=== PATIENT | female | born 1955 | race American Indian/Alaskan Native ===

== ENCOUNTER 2018-05-10 10:08 | Emergency (ER) | payer MEDICARE ==
[2018-05-10 10:27] VITALS: BP 154/82
[2018-05-10] MEDS ORDERED: NACL 0.9% 1000 ML 1,000 ML IV ONE (11:17)
[2018-05-10] MEDS ORDERED: ZOFRAN IV ONE (11:17)
[2018-05-10 11:56] LABS: Basophils # (Auto) 0.1 K/mm3 (0.0-0.1); Basophils % (Auto) 0.6 % (0.0-1.8); Eosinophils # (Auto) 0.2 K/mm3 (0.0-0.4); Eosinophils % (Auto) 1.2 % (0.0-4.3); Hematocrit 35.6 % (30.3-42.9); Hemoglobin 11.4 gm/dl (10.1-14.3); Lymphocytes # (Auto) 1.8 K/mm3 (1.2-5.4); Lymphocytes % (Auto) 12.9 % (13.4-35.0); Mean Corpuscular HGB Conc 32 % (30-34); Mean Corpuscular Volume 89 fl (79-97); Monocytes # (Auto) 0.9 K/mm3 (0.0-0.8); Monocytes % (Auto) 6.6 % (0.0-7.3); Platelet Count 386 K/mm3 (140-440); Red Blood Count 4.02 M/mm3 (3.65-5.03); Red Cell Distribution Width 15.2 % (13.2-15.2)
--- NOTE | 2018-05-10 12:10 | Emergency Department Report ---
ED N/V/D HPI - General Chief complaint: Nausea/Vomiting/Diarrhea Stated complaint: NAUSEA Time Seen by Provider: 05/10/18 11:16 Source: patient Mode of arrival: Wheelchair Limitations: No Limitations - History of Present Illness Initial comments: This is a 63-year-old female nontoxic, well nourished in appearance, no acute signs of distress presents to the ED with c/o of intermittent nausea x1 month. Patient stated that she has been changed with her diabetes medications and NovoLog and ever since then has had nausea. Patient did state that she had one episode of vomiting last night. Patient currently denies any vomiting. Patient describes vomiting as food content. Patient also is complaining about dry nonproductive cough. Patient denies any abdominal pain, chest pain, short of breath, fever, chills, headache, stiff neck, numbness or tingling. Patient denies any diarrhea or constipation. Patient denies any recent travels. MD complaint: nausea, other (cough) -: month(s) (1) Associated Abdominal Pain: No Radiation: none Pain Scale: 0 Consistency: intermittent Improves with: none Worsens with: none Associated Symptoms: cough, nausea/vomiting. denies: myalgias, chest pain, diaphoresis, fever/chills, headaches, loss of appetite, malaise, rash, dysuria, shortness of breath, syncope, weakness - Related Data Home Medications Medication Instructions Recorded Confirmed Last Taken Amlodipine Besylate [Norvasc] 10 mg PO QDAY 05/10/18 05/10/18 Unknown Atorvastatin [Lipitor Tab] 80 mg PO QHS 05/10/18 05/10/18 Unknown Chlorthalidone [Thalitone] 25 mg PO QDAY 05/10/18 05/10/18 Unknown Insulin Aspart [NovoLOG Flexpen] 16 units SUB-Q TID 05/10/18 05/10/18 Unknown Lisinopril [Zestril] 40 mg PO DAILY 05/10/18 05/10/18 Unknown Metformin HCl [Glucophage] 500 mg PO BID 05/10/18 05/10/18 Unknown Ranitidine HCl [Zantac 150 MG TAB] 150 mg PO BID 05/10/18 05/10/18 Unknown Previous Rx's Medication Instructions Recorded Last Taken Type Benzonatate [Tessalon Perle] 100 mg PO Q8H PRN #20 capsule 05/10/18 Unknown Rx Docusate Sodium [Colace] 100 mg PO BID PRN #10 capsule 05/10/18 Unknown Rx Ondansetron [Zofran Odt] 4 mg PO Q8HR PRN #20 tab.rapdis 05/10/18 Unknown Rx Allergies Allergy/AdvReac Type Severity Reaction Status Date / Time No Known Allergies Allergy Unverified 05/10/18 13:39 ED Review of Systems ROS: Stated complaint: NAUSEA Other details as noted in HPI Constitutional: denies: chills, fever Eyes: denies: eye pain, eye discharge, vision change ENT: denies: ear pain, throat pain Respiratory: cough. denies: shortness of breath, wheezing Cardiovascular: denies: chest pain, palpitations Endocrine: no symptoms reported Gastrointestinal: nausea. denies: abdominal pain, vomiting, diarrhea Genitourinary: denies: urgency, dysuria, discharge Musculoskeletal: denies: back pain, joint swelling, arthralgia Skin: denies: rash, lesions Neurological: denies: headache, weakness, paresthesias Psychiatric: denies: anxiety, depression Hematological/Lymphatic: denies: easy bleeding, easy bruising ED Past Medical Hx - Past Medical History Previous Medical History?: Yes Hx Hypertension: Yes Hx Diabetes: Yes Hx Arthritis: Yes - Surgical History Past Surgical History?: No - Social History Smoking Status: Never Smoker Substance Use Type: None - Medications Home Medications: Home Medications Medication Instructions Recorded Confirmed Last Taken Type Amlodipine Besylate [Norvasc] 10 mg PO QDAY 05/10/18 05/10/18 Unknown History Atorvastatin [Lipitor Tab] 80 mg PO QHS 05/10/18 05/10/18 Unknown History Benzonatate [Tessalon Perle] 100 mg PO Q8H PRN #20 capsule 05/10/18 Unknown Rx Chlorthalidone [Thalitone] 25 mg PO QDAY 05/10/18 05/10/18 Unknown History Docusate Sodium [Colace] 100 mg PO BID PRN #10 capsule 05/10/18 Unknown Rx Insulin Aspart [NovoLOG Flexpen] 16 units SUB-Q TID 05/10/18 05/10/18 Unknown History Lisinopril [Zestril] 40 mg PO DAILY 05/10/18 05/10/18 Unknown History Metformin HCl [Glucophage] 500 mg PO BID 05/10/18 05/10/18 Unknown History Ondansetron [Zofran Odt] 4 mg PO Q8HR PRN #20 tab.rapdis 05/10/18 Unknown Rx Ranitidine HCl [Zantac 150 MG TAB] 150 mg PO BID 05/10/18 05/10/18 Unknown History ED Physical Exam - General Limitations: No Limitations General appearance: alert, in no apparent distress - Head Head exam: Present: atraumatic, normocephalic - Eye Eye exam: Present: normal appearance - Neck Neck exam: Present: normal inspection, full ROM. Absent: tenderness, meningismus - Respiratory Respiratory exam: Present: normal lung sounds bilaterally. Absent: respiratory distress, wheezes, rales, rhonchi, stridor, chest wall tenderness, accessory muscle use, decreased breath sounds, prolonged expiratory - Cardiovascular Cardiovascular Exam: Present: regular rate, normal rhythm, normal heart sounds. Absent: bradycardia, tachycardia, irregular rhythm, systolic murmur, diastolic murmur, rubs, gallop - GI/Abdominal GI/Abdominal exam: Present: soft, normal bowel sounds. Absent: distended, tenderness, guarding, rebound, rigid, diminished bowel sounds, hyperactive bowel sounds, hypoactive bowel sounds - Extremities Exam Extremities exam: Present: normal inspection, full ROM - Back Exam Back exam: Present: normal inspection, full ROM - Neurological Exam Neurological exam: Present: alert, oriented X3 - Psychiatric Psychiatric exam: Present: normal affect, normal mood - Skin Skin exam: Present: warm, dry, intact, normal color. Absent: rash ED Course Vital Signs 05/10/18 05/10/18 10:23 11:12 Temperature 98.1 F Pulse Rate 86 Respiratory 16 18 Rate Blood Pressure 154/82 O2 Sat by Pulse 99 Oximetry - Reevaluation(s) Reevaluation #1: 05/10/18 12:59 Patient is speaking in full sentences with no signs of distress noted. ED Medical Decision Making - Lab Data Result diagrams: 05/10/18 11:27 05/10/18 11:27 - Medical Decision Making This is a 63-year-old female that presents with nausea and cough. Patient is stable and was examined by me. There is no abdominal tenderness. Negative signs of symptoms of appendicitis. Labs obtained. UA obtained. Chest/abdomen xray obtained and dictated by the radiologist. Patient is notified of the report with no questions noted by the patient. Vital signs are stable prior to discharge. Patient received Zofran and 1L Normal saline in the ED which patient stated symptoms has resolved and subsided. A by mouth challenge has been obtained and patient tolerated well with no nausea vomiting. Patient was notified of strict precautions of appendicitis symptoms and to return to the ED if symptoms occurs as soon as possible. Patient was also instructed to Follow-up with a primary care doctor in 3-5 days or if symptoms worsen and continue return to emergency room as soon as possible. At time of discharge, the patient does not seem toxic or ill in appearance. No acute signs of distress noted. Patient agrees to discharge treatment plan of care. No further questions noted by the patient. Critical care attestation.: If time is entered above; I have spent that time in minutes in the direct care of this critically ill patient, excluding procedure time. ED Disposition Clinical Impression: Nausea, Cough Constipation Qualifiers: Constipation type: unspecified constipation type Qualified Code(s): K59.00 - Constipation, unspecified Disposition: TO HOME OR SELFCARE Is pt being admited?: No Does the pt Need Aspirin: No Condition: Stable Instructions: High Fiber Diet (ED), Constipation (ED), Acute Nausea and Vomiting (ED) Additional Instructions: Follow-up with a primary care doctor in 3-5 days or if symptoms worsen and continue return to emergency room as soon as possible. Prescriptions: Benzonatate [Tessalon Perle] 100 mg PO Q8H PRN #20 capsule PRN Reason: Cough Docusate Sodium [Colace] 100 mg PO BID PRN #10 capsule PRN Reason: Constipation Ondansetron [Zofran Odt] 4 mg PO Q8HR PRN #20 tab.rapdis PRN Reason: Nausea Referrals: PRIMARY CARE, [Referring] - 3-5 Days VÍCTOR SMITH MD [Staff Physician] - 3-5 Days [facility] [Outside] - 3-5 Days [facility] [Outside] - 3-5 Days Forms: Work/School Release Form(ED)
[2018-05-10 12:15] LABS: Alanine Aminotransferase 15 units/L (7-56); Albumin 3.9 g/dL (3.9-5); BUN/Creatinine Ratio 29; Bilirubin,Direct < 0.2 mg/dL (0-0.2); Blood Urea Nitrogen 20 mg/dL (7-17); Calcium 9.2 mg/dL (8.4-10.2); Hemolysis Index 14
[2018-05-10] MEDS ORDERED: TESSALON PERLES PO ONE (12:39)
--- NOTE | 2018-05-10 13:44 | XRay Report ---
ABDOMINAL SERIES: History: Cough. Supine and upright views of the abdomen and frontal view of the chest are submitted. There is gas mixed with moderate stool throughout the colon. There are no dilated loops of bowel or air-fluid levels. There is no free intraperitoneal gas. The lungs are clear. IMPRESSION: Constipation.
== END 2018-05-10 14:53 | disposition home or self-care (01) ==
LOC: ED 10:08
DX: R11.2 Nausea with vomiting, unspecified (principal); K59.00 Constipation, unspecified; E11.65 Type 2 diabetes mellitus with hyperglycemia; R05 Cough; I10 Essential (primary) hypertension; M19.90 Unspecified osteoarthritis, unspecified site
CPT/HCPCS: 36415; 74022; 80048; 80076; 82805; 82962; 83690; 85025; 96361; 96374; 99284; J2405; J7030

== ENCOUNTER 2020-05-15 12:32 | Inpatient (IN) | payer OTHER, MEDICARE ==
--- NOTE | 2020-05-15 12:47 | Event Note ---
ED Screening Note Date of service: 05/15/20 Time: 12:45 ED Screening Note: Pt complains of nausea x 3 days satting at 90-92% on room air-admits to mild SOB denies CP No vomiting, cough, diarrhea, or abdominal pain per pt denies hx of CHF, +asthma, unsure of hx of COPD This initial assessment/diagnostic orders/clinical plan/treatment(s) is/are subject to change based on patients health status, clinical progression and re- assessment by fellow clinical providers in the ED. Further treatment and workup at subsequent clinical providers discretion. Patient/guardian urged not to elope from the ED as their condition may be serious if not clinically assessed and managed. Initial orders include: labs CXR EKG
--- NOTE | 2020-05-15 13:25 | XRay Report ---
CHEST 2 VIEWS INDICATION / CLINICAL INFORMATION: Hypoxia. COMPARISON: None available. FINDINGS: SUPPORT DEVICES: None. HEART / MEDIASTINUM: No significant abnormality. LUNGS / PLEURA: There are diffuse patchy bilateral pulmonary opacities. No pneumothorax. ADDITIONAL FINDINGS: No significant additional findings. IMPRESSION: 1. Diffuse patchy bilateral pulmonary opacities that could indicate viral pneumonia. Signer Name: Charles Chavez MD Signed: 05/15/2020 1:21 PM Workstation Name: [id number]
[2020-05-15 14:27] LABS: Basophils % (Auto) 0.3 % (0.0-1.8); Hematocrit 29.7 % (30.3-42.9); Hemoglobin 9.3 gm/dl (10.1-14.3); Lymphocytes # (Auto) 0.7 K/mm3 (1.2-5.4); Lymphocytes % (Auto) 9.9 % (13.4-35.0); Mean Corpuscular HGB Conc 31 % (30-34); Mean Corpuscular Volume 78 fl (79-97); Monocytes # (Auto) 0.6 K/mm3 (0.0-0.8); Monocytes % (Auto) 9.2 % (0.0-7.3); Platelet Count 222 K/mm3 (140-440); Red Blood Count 3.81 M/mm3 (3.65-5.03); Red Cell Distribution Width 19.2 % (13.2-15.2)
[2020-05-15 14:45] LABS: C-Reactive Protein 10.5 mg/dL (0.00-1.30)
[2020-05-15 14:54] LABS: Alanine Aminotransferase 18 units/L (7-56); Albumin 3.5 g/dL (3.9-5); BUN/Creatinine Ratio 21; Blood Urea Nitrogen 23 mg/dL (7-17); Calcium 8.3 mg/dL (8.4-10.2); Hemolysis Index 2
[2020-05-15] MEDS ORDERED: AZITHROMYCIN/NS 500 MG/250 ML 500 MG/250 ML BAG IV ONE (16:32)
[2020-05-15] MEDS ORDERED: cefTRIAXone/NS 2 GM/100 ML 2 GM/100 ML BAG IV ONE (16:32)
[2020-05-15] MEDS ORDERED: dexAMETHasone 4 MG/ML VIAL IV ONE (16:34)
[2020-05-15] MEDS ORDERED: SODIUM CHLORIDE 0.9% 1000 ML 1,000 ML IV ONE (16:34)
--- NOTE | 2020-05-15 16:46 | Emergency Department Report ---
ED General Adult HPI - General Chief complaint: Nausea/Vomiting/Diarrhea Stated complaint: NAUSEA Time Seen by Provider: 05/15/20 12:44 Source: EMS Mode of arrival: Wheelchair Limitations: No Limitations - History of Present Illness Initial comments: Patient is a 65-year-old F [place] female with a past medical history of diabetes COPD hypertension who is presenting with generalized malaise and not feeling well for approximately a week. Patient has had some mild nausea as well as a cough that is nonproductive. Just minimal shortness of breath. Patient states she feels like her sugar has been getting high at home. States when her blood glucose rises she just feels miserable. Patient have a hard time expressing exactly how she feels specifically. She denies diarrhea or vomiting. States she has minimal body aches. To her knowledge she has no exposure to COVID-19. Severity scale (0 -10): 0 - Related Data Home Medications Medication Instructions Recorded Confirmed Last Taken Amlodipine Besylate [Norvasc] 10 mg PO QDAY 05/10/18 05/10/18 Unknown Atorvastatin [Lipitor Tab] 80 mg PO QHS 05/10/18 05/10/18 Unknown Chlorthalidone [Thalitone] 25 mg PO QDAY 05/10/18 05/10/18 Unknown Insulin Aspart (Nf) [NovoLOG 16 units SUB-Q TID 05/10/18 05/10/18 Unknown Flexpen] Lisinopril [Zestril] 40 mg PO DAILY 05/10/18 05/10/18 Unknown Metformin HCl [Glucophage] 500 mg PO BID 05/10/18 05/10/18 Unknown raNITIdine HCl [Zantac 150 MG TAB] 150 mg PO BID 05/10/18 05/10/18 Unknown Previous Rx's Medication Instructions Recorded Last Taken Type Benzonatate [Tessalon Perle] 100 mg PO Q8H PRN #20 capsule 05/10/18 Unknown Rx Docusate Sodium [Colace] 100 mg PO BID PRN #10 capsule 05/10/18 Unknown Rx Ondansetron [Zofran Odt] 4 mg PO Q8HR PRN #20 tab.rapdis 05/10/18 Unknown Rx Allergies Allergy/AdvReac Type Severity Reaction Status Date / Time No Known Allergies Allergy Verified 05/15/20 12:41 ED Review of Systems ROS: Stated complaint: NAUSEA Other details as noted in HPI Comment: All other systems reviewed and negative ED Past Medical Hx - Past Medical History Hx Hypertension: Yes Hx Diabetes: Yes Hx Arthritis: Yes - Social History Smoking Status: Never Smoker Substance Use Type: None - Medications Home Medications: Home Medications Medication Instructions Recorded Confirmed Last Taken Type Amlodipine Besylate [Norvasc] 10 mg PO QDAY 05/10/18 05/10/18 Unknown History Atorvastatin [Lipitor Tab] 80 mg PO QHS 05/10/18 05/10/18 Unknown History Benzonatate [Tessalon Perle] 100 mg PO Q8H PRN #20 capsule 05/10/18 Unknown Rx Chlorthalidone [Thalitone] 25 mg PO QDAY 05/10/18 05/10/18 Unknown History Docusate Sodium [Colace] 100 mg PO BID PRN #10 capsule 05/10/18 Unknown Rx Insulin Aspart (Nf) [NovoLOG 16 units SUB-Q TID 05/10/18 05/10/18 Unknown History Flexpen] Lisinopril [Zestril] 40 mg PO DAILY 05/10/18 05/10/18 Unknown History Metformin HCl [Glucophage] 500 mg PO BID 05/10/18 05/10/18 Unknown History Ondansetron [Zofran Odt] 4 mg PO Q8HR PRN #20 tab.rapdis 05/10/18 Unknown Rx raNITIdine HCl [Zantac 150 MG TAB] 150 mg PO BID 05/10/18 05/10/18 Unknown History ED Physical Exam - General Limitations: No Limitations General appearance: alert, in no apparent distress - Head Head exam: Present: atraumatic, normocephalic - Eye Eye exam: Present: normal appearance, PERRL, EOMI - ENT ENT exam: Present: mucous membranes moist - Neck Neck exam: Present: normal inspection - Respiratory Respiratory exam: Present: rhonchi. Absent: normal lung sounds bilaterally, re spiratory distress, wheezes, rales, chest wall tenderness, accessory muscle use - Cardiovascular Cardiovascular Exam: Present: regular rate, normal rhythm, normal heart sounds. Absent: systolic murmur, diastolic murmur, rubs, gallop - GI/Abdominal GI/Abdominal exam: Present: soft, normal bowel sounds. Absent: distended, tenderness, guarding, rebound - Extremities Exam Extremities exam: Present: normal inspection - Back Exam Back exam: Present: normal inspection - Neurological Exam Neurological exam: Present: alert, oriented X3 - Psychiatric Psychiatric exam: Present: normal affect, normal mood - Skin Skin exam: Present: warm, dry, intact, normal color. Absent: rash ED Course Vital Signs 05/15/20 12:45 Temperature 97.9 F Pulse Rate 89 Respiratory 22 Rate Blood Pressure 161/68 [Right] O2 Sat by Pulse 92 Oximetry ED Medical Decision Making - Lab Data Result diagrams: 05/15/20 14:08 05/15/20 14:08 Lab Results 05/15/20 05/15/20 05/15/20 Range/Units 14:08 14:08 14:08 WBC 6.9 (4.5-11.0) K/mm3 RBC 3.81 (3.65-5.03) M/mm3 Hgb 9.3 L (10.1-14.3) gm/dl Hct 29.7 L (30.3-42.9) % MCV 78 L (79-97) fl MCH 24 L (28-32) pg MCHC 31 (30-34) % RDW 19.2 H (13.2-15.2) % Plt Count 222 (140-440) K/mm3 Lymph % (Auto) 9.9 L (13.4-35.0) % Island % (Auto) 9.2 H (0.0-7.3) % Eos % (Auto) 0.0 (0.0-4.3) % Baso % (Auto) 0.3 (0.0-1.8) % Lymph # (Auto) 0.7 L (1.2-5.4) K/mm3 Island # (Auto) 0.6 (0.0-0.8) K/mm3 Eos # (Auto) 0.0 (0.0-0.4) K/mm3 Baso # (Auto) 0.0 (0.0-0.1) K/mm3 Seg Neutrophils % 80.6 H (40.0-70.0) % Seg Neutrophils # 5.6 (1.8-7.7) K/mm3 D-Dimer 270.88 H (0-234) ng/mlDDU Sodium 133 L (137-145) mmol/L Potassium 4.0 (3.6-5.0) mmol/L Chloride 98.9 (98-107) mmol/L Carbon Dioxide 26 (22-30) mmol/L Anion Gap 12 mmol/L BUN 23 H (7-17) mg/dL Creatinine 1.1 (0.6-1.2) mg/dL Estimated GFR > 60 ml/min BUN/Creatinine Ratio 21 % Glucose 225 H (65-100) mg/dL Lactic Acid (0.7-2.0) mmol/L Calcium 8.3 L (8.4-10.2) mg/dL Ferritin (10.0-200.0) ng/mL Total Bilirubin 0.30 (0.1-1.2) mg/dL AST 22 (5-40) units/L ALT 18 (7-56) units/L Alkaline Phosphatase 88 (35-129) units/L Lactate Dehydrogenase (91-180) units/L Troponin T 0.027 (0.00-0.029) ng/mL C-Reactive Protein (0.00-1.30) mg/dL NT-Pro-B Natriuret Pep 410.2 (0-900) pg/mL Total Protein 6.4 (6.3-8.2) g/dL Albumin 3.5 L (3.9-5) g/dL Albumin/Globulin Ratio 1.2 % Lipase 31 (13-60) units/L 05/15/20 05/15/20 05/15/20 Range/Units 14:08 14:08 15:38 WBC (4.5-11.0) K/mm3 RBC (3.65-5.03) M/mm3 Hgb (10.1-14.3) gm/dl Hct (30.3-42.9) % MCV (79-97) fl MCH (28-32) pg MCHC (30-34) % RDW (13.2-15.2) % Plt Count (140-440) K/mm3 Lymph % (Auto) (13.4-35.0) % Island % (Auto) (0.0-7.3) % Eos % (Auto) (0.0-4.3) % Baso % (Auto) (0.0-1.8) % Lymph # (Auto) (1.2-5.4) K/mm3 Island # (Auto) (0.0-0.8) K/mm3 Eos # (Auto) (0.0-0.4) K/mm3 Baso # (Auto) (0.0-0.1) K/mm3 Seg Neutrophils % (40.0-70.0) % Seg Neutrophils # (1.8-7.7) K/mm3 D-Dimer (0-234) ng/mlDDU Sodium (137-145) mmol/L Potassium (3.6-5.0) mmol/L Chloride (98-107) mmol/L Carbon Dioxide (22-30) mmol/L Anion Gap mmol/L BUN (7-17) mg/dL Creatinine (0.6-1.2) mg/dL Estimated GFR ml/min BUN/Creatinine Ratio % Glucose (65-100) mg/dL Lactic Acid 1.10 (0.7-2.0) mmol/L Calcium (8.4-10.2) mg/dL Ferritin 43.7 (10.0-200.0) ng/mL Total Bilirubin (0.1-1.2) mg/dL AST (5-40) units/L ALT (7-56) units/L Alkaline Phosphatase (35-129) units/L Lactate Dehydrogenase 296 H (91-180) units/L Troponin T (0.00-0.029) ng/mL C-Reactive Protein 10.50 H (0.00-1.30) mg/dL NT-Pro-B Natriuret Pep (0-900) pg/mL Total Protein (6.3-8.2) g/dL Albumin (3.9-5) g/dL Albumin/Globulin Ratio % Lipase (13-60) units/L - EKG Data -: EKG Interpreted by Nc - EKG Data 05/15/20 16:43 EKG shows sinus rhythm with a rate of 86. The axis is normal intervals are normal. Occasional PVC. No ST segment elevation or depressions. Is an erratic baseline secondary to the patient's breathing. Time of interpretation is 1640 - Radiology Data [facility] [address] [place] [address] XRay Report Signed Patient: DENIZ CHRISTIAN MR#: [id number] : 1955 Acct:[id number] Age/Sex: 65 / F ADM Date: 05/15/20 Loc: ED Attending Dr: Ordering Physician: LUCIA MCLAUGHLIN Date of Service: 05/15/20 Procedure(s): XR chest routine 2V Accession Number(s): [id number] cc: LUCIA MCLAUGHLIN Fluoro Time In Minutes: CHEST 2 VIEWS INDICATION / CLINICAL INFORMATION: Hypoxia. COMPARISON: None available. FINDINGS: SUPPORT DEVICES: None. HEART / MEDIASTINUM: No significant abnormality. LUNGS / PLEURA: There are diffuse patchy bilateral pulmonary opacities. No pneumothorax. ADDITIONAL FINDINGS: No significant additional findings. IMPRESSION: 1. Diffuse patchy bilateral pulmonary opacities that could indicate viral pneumonia. Signer Name: Charles Chavez MD Signed: 05/15/2020 1:21 PM Workstation Name: [id number] - Medical Decision Making Patient is a 65-year-old F [place] female who is presenting with cough and general malaise for approximately a week. Chest x-ray is consistent with bilateral lower lobe infiltrate left greater than right. There is some worry of COVID-19. Covid test has been ordered. Laboratory studies also show elevation of inflammatory markers also consistent with infection with COVID-19. Patient's O2 sat was 20 9092% on room air and she was placed on 2 L of oxygen. Patient was started on Rocephin azithromycin and given a dose of Decadron and she will be admitted to the hospitalist service. Critical Care Time: Yes (30) Critical care attestation.: If time is entered above; I have spent that time in minutes in the direct care of this critically ill patient, excluding procedure time. ED Disposition Clinical Impression: Suspected COVID-19 virus infection, Hyperglycemia, Hypoxia Pneumonia Qualifiers: Pneumonia type: due to unspecified organism Laterality: bilateral Lung location: lower lobe of lung Qualified Code(s): J18.9 - Pneumonia, unspecified organism Disposition: OP ADMIT IP TO THIS HOSP Is pt being admited?: Yes Does the pt Need Aspirin: No Condition: Poor Instructions: Bacterial Pneumonia (ED) Referrals: PRIMARY CARE, [Primary Care Provider] - 3-5 Days Time of Disposition: 16:47
[2020-05-15] MEDS ORDERED: ACETAMINOPHEN 325 MG TAB PO PRN (18:11)
[2020-05-15] MEDS ORDERED: DEXTROSE 50% IN WATER (25GM) 50 ML SYRINGE IV PRN (18:11)
[2020-05-15] MEDS ORDERED: ONDANSETRON 4 MG/2 ML INJ IV PRN (18:11)
[2020-05-15] MEDS ORDERED: MAGNESIUM HYDROXIDE (MOM) ORAL LIQD UDC PO PRN (18:11)
[2020-05-15] MEDS ORDERED: MORPHINE 2 MG/1 ML INJ IV PRN (18:11)
--- NOTE | 2020-05-15 18:25 | History and Physical Report ---
History of Present Illness Date of examination: 05/15/20 Date of admission: 05/15/20 16:47 Chief complaint: cough Malaise History of present illness: 65-year-old -[place] female with known history of arthritis, hypertension and diabetes mellitus presenting to the emergency room today complaining of generalized malaise and cough over the past 1 week. He has had some mild nausea but no vomiting. He has also had cough which is nonproductive. She has had some mild shortness of breath. Patient denies any abdominal pain, no hematuria or dysuria, no headache or dizziness. Denies any sick contacts and no recent travel. Denies any contact with anyone with COVID-19. On arrival in the emergency room patient was slightly hypoxic. Work-up in the emergency room reveals bilateral lower lobe infiltrates. Patient has been admitted for pneumonia and we will also rule out for COVID-19. Past History Past Medical History: arthritis, diabetes, hypertension, hyperlipidemia Past Surgical History: No surgical history Social history: no significant social history, alcohol abuse (Occasional Alcohol) Medications and Allergies Allergies Allergy/AdvReac Type Severity Reaction Status Date / Time No Known Allergies Allergy Verified 05/15/20 12:41 Home Medications Medication Instructions Recorded Confirmed Last Taken Type Amlodipine Besylate [Norvasc] 10 mg PO QDAY 05/10/18 05/10/18 Unknown History Atorvastatin [Lipitor Tab] 80 mg PO QHS 05/10/18 05/10/18 Unknown History Benzonatate [Tessalon Perle] 100 mg PO Q8H PRN #20 capsule 05/10/18 Unknown Rx Chlorthalidone [Thalitone] 25 mg PO QDAY 05/10/18 05/10/18 Unknown History Docusate Sodium [Colace] 100 mg PO BID PRN #10 capsule 05/10/18 Unknown Rx Insulin Aspart (Nf) [NovoLOG 16 units SUB-Q TID 05/10/18 05/10/18 Unknown History Flexpen] Lisinopril [Zestril] 40 mg PO DAILY 05/10/18 05/10/18 Unknown History Metformin HCl [Glucophage] 500 mg PO BID 05/10/18 05/10/18 Unknown History Ondansetron [Zofran Odt] 4 mg PO Q8HR PRN #20 tab.rapdis 05/10/18 Unknown Rx raNITIdine HCl [Zantac 150 MG TAB] 150 mg PO BID 05/10/18 05/10/18 Unknown History Active Meds: Active Medications Acetaminophen (Acetaminophen 325 Mg Tab) 650 mg PO Q4H PRN PRN Reason: Pain MILD(1-3)/Fever >100.5/ARNETT Review of Systems Constitutional: malaise, no fever, no chills Ears, nose, mouth and throat: no nasal congestion, no sore throat Cardiovascular: no chest pain, no palpitations Respiratory: cough, shortness of breath Gastrointestinal: no abdominal pain, no nausea, no vomiting, no diarrhea Genitourinary Female: no pelvic pain, no flank pain, no dysuria, no hematuria Musculoskeletal: no neck pain, no low back pain Integumentary: no rash, no pruritis Neurological: no headaches, no confusion Psychiatric: no anxiety, no depression Exam - Constitutional Vitals: Temp Pulse Resp BP Pulse Ox 97.9 F 89 22 161/68 92 05/15/20 12:45 05/15/20 12:45 05/15/20 12:45 05/15/20 12:45 05/15/20 12:45 General appearance: Present: no acute distress, well-nourished - EENT Eyes: Present: PERRL, EOM intact. Absent: scleral icterus ENT: hearing intact, clear oral mucosa, dentition normal - Neck Neck: Present: supple, normal ROM - Respiratory Respiratory effort: normal Respiratory: bilateral: diminished - Cardiovascular Rhythm: regular Heart Sounds: Present: S1 & S2. Absent: gallop, systolic murmur, diastolic murmur, rub, click - Extremities Extremities: no ischemia, pulses intact, No edema, Full ROM Peripheral Pulses: within normal limits - Abdominal General gastrointestinal: Present: soft, non-tender, non-distended, normal bowel sounds. Absent: mass - Integumentary Integumentary: Present: clear, warm, dry. Absent: rash - Musculoskeletal Musculoskeletal: strength equal bilaterally - Psychiatric Psychiatric: appropriate mood/affect, intact judgment & insight, memory intact, cooperative - Neurologic Neurologic: CNII-XII intact, no focal deficits, moves all extremities HEART Score - HEART Score Troponin: Troponin T 0.027 ng/mL (0.00-0.029) 05/15/20 14:08 Results - Labs CBC & Chem 7: 05/15/20 14:08 05/15/20 14:08 Labs: Abnormal lab results 05/15/20 05/15/20 05/15/20 Range/Units 14:08 14:08 14:08 Hgb 9.3 L (10.1-14.3) gm/dl Hct 29.7 L (30.3-42.9) % MCV 78 L (79-97) fl MCH 24 L (28-32) pg RDW 19.2 H (13.2-15.2) % Lymph % (Auto) 9.9 L (13.4-35.0) % Lane % (Auto) 9.2 H (0.0-7.3) % Lymph # (Auto) 0.7 L (1.2-5.4) K/mm3 Seg Neutrophils % 80.6 H (40.0-70.0) % D-Dimer 270.88 H (0-234) ng/mlDDU Sodium 133 L (137-145) mmol/L BUN 23 H (7-17) mg/dL Glucose 225 H (65-100) mg/dL Calcium 8.3 L (8.4-10.2) mg/dL Lactate Dehydrogenase (91-180) units/L C-Reactive Protein (0.00-1.30) mg/dL Albumin 3.5 L (3.9-5) g/dL 05/15/20 Range/Units 14:08 Hgb (10.1-14.3) gm/dl Hct (30.3-42.9) % MCV (79-97) fl MCH (28-32) pg RDW (13.2-15.2) % Lymph % (Auto) (13.4-35.0) % Lane % (Auto) (0.0-7.3) % Lymph # (Auto) (1.2-5.4) K/mm3 Seg Neutrophils % (40.0-70.0) % D-Dimer (0-234) ng/mlDDU Sodium (137-145) mmol/L BUN (7-17) mg/dL Glucose (65-100) mg/dL Calcium (8.4-10.2) mg/dL Lactate Dehydrogenase 296 H (91-180) units/L C-Reactive Protein 10.50 H (0.00-1.30) mg/dL Albumin (3.9-5) g/dL Assessment and Plan - Patient Problems (1) Pneumonia Current Visit: Yes Status: Acute Qualifiers: Pneumonia type: due to unspecified organism Laterality: bilateral Lung location: lower lobe of lung Qualified Code(s): J18.9 - Pneumonia, unspecified organism Plan to address problem: Patient placed on empiric IV antibiotics. We await culture results. (2) Hyperglycemia Current Visit: Yes Status: Acute Plan to address problem: We will monitor Accu-Cheks closely for good glycemic control. (3) Hypoxia Current Visit: Yes Status: Acute Plan to address problem: Possibly secondary to the underlying pneumonia. Keep O2 saturation greater or equal to 94%. (4) Suspected COVID-19 virus infection Current Visit: Yes Status: Acute Plan to address problem: Patient placed on isolation precautions. We await COVID-19 testing. Meanwhile patient has been placed on IV steroid. Consult placed to infectious disease for evaluation and recommendation. (5) DVT prophylaxis Current Visit: Yes Status: Acute Plan to address problem: Patient placed on subcutaneous Lovenox. (6) Full code status Current Visit: Yes Status: Acute Plan to address problem: Patient is a full code.
[2020-05-15] MEDS ORDERED: NON-FORMULARY EACH (Atorvastatin [Lipitor] 80 MG Tablet) PO SCH (22:00)
[2020-05-15] MEDS: INSULIN LISPRO 100 UNIT/ML SUB-Q SCH (23:08)
[2020-05-15] MEDS: guaiFENesin DM 200/20 MG ORAL LIQD 10 ML PO PRN (23:10)
[2020-05-16 06:31] LABS: Basophils % (Auto) 0.2 % (0.0-1.8); Hematocrit 27.5 % (30.3-42.9); Hemoglobin 8.7 gm/dl (10.1-14.3); Lymphocytes # (Auto) 0.3 K/mm3 (1.2-5.4); Lymphocytes % (Auto) 9.4 % (13.4-35.0); Mean Corpuscular HGB Conc 32 % (30-34); Mean Corpuscular Volume 77 fl (79-97); Monocytes # (Auto) 0.2 K/mm3 (0.0-0.8); Monocytes % (Auto) 4.2 % (0.0-7.3); Platelet Count 223 K/mm3 (140-440); Red Blood Count 3.56 M/mm3 (3.65-5.03); Red Cell Distribution Width 18.6 % (13.2-15.2)
[2020-05-16 06:38] LABS: INR 0.98 (0.87-1.13)
[2020-05-16 06:46] LABS: Albumin 3.2 g/dL (3.9-5); Calcium 8.3 mg/dL (8.4-10.2)
[2020-05-16] MEDS: INSULIN LISPRO 100 UNIT/ML SUB-Q SCH ×4 (07:30→21:51)
[2020-05-16] MEDS: guaiFENesin DM 200/20 MG ORAL LIQD 10 ML PO PRN ×3 (09:44→21:59)
[2020-05-16] MEDS: dexAMETHasone 4 MG/ML VIAL IV SCH (09:45)
[2020-05-16] MEDS: amLODIPine 10 MG TAB PO SCH (09:45)
[2020-05-16] MEDS: LISINOPRIL 40 MG TAB PO SCH (09:45)
[2020-05-16] MEDS: CHLORTHALIDONE 25 MG TAB PO SCH (09:45)
[2020-05-16] MEDS ORDERED: ALBUTEROL 8.5 GM MDI INHALATION IH ONE (10:41)
[2020-05-16] MEDS ORDERED: ALBUTEROL 8.5 GM MDI INHALATION IH PRN (10:42)
--- NOTE | 2020-05-16 12:36 | Consultation ---
History of Present Illness - Reason for Consult Consult date: 05/16/20 R/o COVID Requesting physician: ATILIO GARCIA - History of Present Illness 65 years old female with history of hypertension, diabetes mellitus, arthritis, admitted on 05/15/2020 secondary to a week history of nonproductive cough, generalized malaise, nausea, vomiting, progressive shortness of breath. Patient denies any contact with COVID-19 patients. In the ED, temperature 97.9, HR 89, RR 22, O2 92%, BP 161/68. Initial WBC 6.9. Hemoglobin 8.3. Platelets 222. Creatinine was 1.1, today 1.4. D-dimer 270. CRP 10.5. LDH 296. Procalcitonin 0.2. Chest x-ray patchy airspace disease bilaterally. Patient is currently on 3 L nasal cannula. Review of Systems: reviewed ED and H&P notes. Review of system deferred to minimize COVID-19 transmission. Past History Past Medical History: arthritis, diabetes, hypertension, hyperlipidemia Past Surgical History: No surgical history Social history: no significant social history, alcohol abuse (Occasional Alcohol) Medications and Allergies Allergies Allergy/AdvReac Type Severity Reaction Status Date / Time No Known Allergies Allergy Verified 05/15/20 12:41 Home Medications Medication Instructions Recorded Confirmed Last Taken Type Amlodipine Besylate [Norvasc] 10 mg PO QDAY 05/10/18 05/10/18 Unknown History Atorvastatin [Lipitor Tab] 80 mg PO QHS 05/10/18 05/10/18 Unknown History Benzonatate [Tessalon Perle] 100 mg PO Q8H PRN #20 capsule 05/10/18 Unknown Rx Chlorthalidone [Thalitone] 25 mg PO QDAY 05/10/18 05/10/18 Unknown History Docusate Sodium [Colace] 100 mg PO BID PRN #10 capsule 05/10/18 Unknown Rx Insulin Aspart (Nf) [NovoLOG 16 units SUB-Q TID 05/10/18 05/10/18 Unknown History Flexpen] Lisinopril [Zestril] 40 mg PO DAILY 05/10/18 05/10/18 Unknown History Metformin HCl [Glucophage] 500 mg PO BID 05/10/18 05/10/18 Unknown History Ondansetron [Zofran Odt] 4 mg PO Q8HR PRN #20 tab.rapdis 05/10/18 Unknown Rx raNITIdine HCl [Zantac 150 MG TAB] 150 mg PO BID 05/10/18 05/10/18 Unknown History Active Meds: Active Medications Acetaminophen (Acetaminophen 325 Mg Tab) 650 mg PO Q4H PRN PRN Reason: Pain MILD(1-3)/Fever >100.5/ARNETT Albuterol (Albuterol 8.5 Gm Mdi Inhalation) 2 puff IH Q4HRT PRN PRN Reason: Shortness Of Breath Amlodipine Besylate (Amlodipine 10 Mg Tab) 10 mg PO QDAY [facility] Last Admin: 05/16/20 09:45 Dose: 10 mg Documented by: Atorvastatin Calcium (Atorvastatin 40 Mg Tab) 80 mg PO QHS [facility] Last Admin: 05/15/20 22:25 Dose: 80 mg Documented by: Chlorthalidone (Chlorthalidone 25 Mg Tab) 25 mg PO QDAY [facility] Last Admin: 05/16/20 09:45 Dose: 25 mg Documented by: Dexamethasone (Dexamethasone 4 Mg/Ml Vial) 6 mg IV Q24HR [facility] Stop: 05/24/20 10:01 Last Admin: 05/16/20 09:45 Dose: 6 mg Documented by: Dextrose (Dextrose 50% In Water (25gm) 50 Ml Syringe) 50 ml IV Q30MIN PRN; Protocol PRN Reason: Hypoglycemia Guaifenesin (Guaifenesin Dm 200/20 Mg Oral Liqd 10 Ml) 10 ml PO Q4H PRN PRN Reason: Cough Last Admin: 05/16/20 09:44 Dose: 10 ml Documented by: Ceftriaxone Sodium (Rocephin/Ns 2 Gm/100 Ml) 2 gm in 100 mls @ 200 mls/hr IV Q24H [facility]; Protocol Azithromycin (Zithromax/Ns) 500 mg in 250 mls @ 250 mls/hr IV Q24H [facility]; Protocol Stop: 05/19/20 19:59 Insulin Human Isoph/Insulin Regular (Insulin Nph/Regular 70/30 Inj) 16 unit SUB-Q BIDDIAB [facility] Insulin Human Lispro (Insulin Lispro 100 Unit/Ml) 0 unit SUB-Q ACHS [facility]; Protocol Last Admin: 05/16/20 07:30 Dose: 8 unit Documented by: Lisinopril (Lisinopril 40 Mg Tab) 40 mg PO DAILY [facility] Last Admin: 05/16/20 09:45 Dose: 40 mg Documented by: Magnesium Hydroxide (Magnesium Hydroxide (Mom) Oral Liqd Udc) 30 ml PO Q4H PRN PRN Reason: Constipation Morphine Sulfate (Morphine 2 Mg/1 Ml Inj) 2 mg IV Q4H PRN PRN Reason: Pain, Moderate (4-6) Ondansetron HCl (Ondansetron 4 Mg/2 Ml Inj) 4 mg IV Q8H PRN PRN Reason: Nausea And Vomiting Sodium Chloride (Sodium Chloride 0.9% 10 Ml Flush Syringe) 10 ml IV BID [facility] Last Admin: 05/16/20 09:45 Dose: 10 ml Documented by: Sodium Chloride (Sodium Chloride 0.9% 10 Ml Flush Syringe) 10 ml IV PRN PRN PRN Reason: LINE FLUSH Physical Examination - Physical Exam Narrative exam: Physical exam deferred to minimize COVID-19 transmission during pandemic. ER and internal medicine physical examination notes reviewed. - Constitutional Vitals: Vital Signs Temp Pulse Resp BP Pulse Ox 98.8 F 88 20 155/70 97 05/15/20 20:59 05/16/20 02:11 05/16/20 02:11 05/15/20 20:59 05/16/20 02:11 Temperature -Last 24 Hours Temperature 98.8 F Temperature 97.9 F Results - Labs CBC & Chem 7: 05/16/20 04:56 05/16/20 04:56 Labs: Abnormal lab results 05/15/20 05/15/20 05/15/20 Range/Units 14:08 14:08 14:08 WBC (4.5-11.0) K/mm3 RBC (3.65-5.03) M/mm3 Hgb 9.3 L (10.1-14.3) gm/dl Hct 29.7 L (30.3-42.9) % MCV 78 L (79-97) fl MCH 24 L (28-32) pg RDW 19.2 H (13.2-15.2) % Lymph % (Auto) 9.9 L (13.4-35.0) % [place] % (Auto) 9.2 H (0.0-7.3) % Lymph # (Auto) 0.7 L (1.2-5.4) K/mm3 Seg Neutrophils % 80.6 H (40.0-70.0) % D-Dimer 270.88 H (0-234) ng/mlDDU Sodium 133 L (137-145) mmol/L Chloride (98-107) mmol/L Carbon Dioxide (22-30) mmol/L BUN 23 H (7-17) mg/dL Creatinine (0.6-1.2) mg/dL Glucose 225 H (65-100) mg/dL POC Glucose (70-105) mg/dL Calcium 8.3 L (8.4-10.2) mg/dL Lactate Dehydrogenase (91-180) units/L C-Reactive Protein (0.00-1.30) mg/dL Albumin 3.5 L (3.9-5) g/dL 05/15/20 05/15/20 05/16/20 Range/Units 14:08 22:09 04:56 WBC 3.6 L (4.5-11.0) K/mm3 RBC 3.56 L (3.65-5.03) M/mm3 Hgb 8.7 L (10.1-14.3) gm/dl Hct 27.5 L (30.3-42.9) % MCV 77 L (79-97) fl MCH 25 L (28-32) pg RDW 18.6 H (13.2-15.2) % Lymph % (Auto) 9.4 L (13.4-35.0) % [place] % (Auto) (0.0-7.3) % Lymph # (Auto) 0.3 L (1.2-5.4) K/mm3 Seg Neutrophils % 86.2 H (40.0-70.0) % D-Dimer (0-234) ng/mlDDU Sodium (137-145) mmol/L Chloride (98-107) mmol/L Carbon Dioxide (22-30) mmol/L BUN (7-17) mg/dL Creatinine (0.6-1.2) mg/dL Glucose (65-100) mg/dL POC Glucose 334 H (70-105) mg/dL Calcium (8.4-10.2) mg/dL Lactate Dehydrogenase 296 H (91-180) units/L C-Reactive Protein 10.50 H (0.00-1.30) mg/dL Albumin (3.9-5) g/dL 05/16/20 05/16/20 Range/Units 04:56 08:22 WBC (4.5-11.0) K/mm3 RBC (3.65-5.03) M/mm3 Hgb (10.1-14.3) gm/dl Hct (30.3-42.9) % MCV (79-97) fl MCH (28-32) pg RDW (13.2-15.2) % Lymph % (Auto) (13.4-35.0) % [place] % (Auto) (0.0-7.3) % Lymph # (Auto) (1.2-5.4) K/mm3 Seg Neutrophils % (40.0-70.0) % D-Dimer (0-234) ng/mlDDU Sodium 130 L (137-145) mmol/L Chloride 96.3 L (98-107) mmol/L Carbon Dioxide 21 L (22-30) mmol/L BUN 34 H (7-17) mg/dL Creatinine 1.4 H (0.6-1.2) mg/dL Glucose 361 H (65-100) mg/dL POC Glucose 344 H (70-105) mg/dL Calcium 8.3 L (8.4-10.2) mg/dL Lactate Dehydrogenase (91-180) units/L C-Reactive Protein (0.00-1.30) mg/dL Albumin 3.2 L (3.9-5) g/dL Assessment and Plan Cultures: Blood culture pending SARS CoV2 PCR pending Assessment: 65 years old female with history of hypertension, diabetes mellitus, arthritis, admitted on 05/15/2020 secondary to a week history of nonproductive cough, general malaise, nausea, vomiting and progressive shortness of breath: #Bilateral pneumonia: Suspect COVID-19 infection. Chest x-ray with bilateral airspace disease. Inflammatory markers elevated except ferritin which is normal. Noted borderline procalcitonin, unclear if is due to LYNDSAY. #Acute hypoxemic respiratory failure: Sats dropped to 92%, patient currently on 3 L nasal cannula. #LYNDSAY: Likely due to COVID Recommendations: -Continue dexamethasone 6 mg IV/PO daily for 10 days -Follow-up SARS-CoV-2 PCR, if positive please start remdesivir for 5 days -Monitor inflammatory markers - ferritin, Ddimer, CRP, LDH -Continue anticoagulation per System Protocol -Continue ceftriaxone total 5 days and azithromycin total 3 days All laboratory, cultures and imaging were reviewed. Dr. Tompkins rounding this weekend Will follow Emili Collins MD Infectious Diseases [employer] [facility] M [phone] O [phone]
[2020-05-16] MEDS ORDERED: INSULIN LISPRO 100 UNIT/ML SUB-Q NR (15:15)
--- NOTE | 2020-05-16 15:21 | Progress Note ---
Assessment and Plan Assessment and plan: 65-year-old female who presents with nausea vomiting and shortness of breath. Patient has been confirmed with Covid infection. Plan: Sepsis secondary to Covid pneumonia Bilateral pulmonary infiltrates seen on chest x-ray, reviewed Infectious disease consulted Dexamethasone IV Patient currently on azithromycin and ceftriaxone Blood cultures pending Hypertension Chlorthalidone, amlodipine, Diabetes mellitus type 2, with hyperglycemia, insulin-dependent Insulin sliding scale Patient states that she takes 70 3016 units twice daily. Will most likely require higher level of insulin management due to dexamethasone usage Intermittent asthma Albuterol MDI breathing treatment Dexamethasone Pseudohyponatremia Secondary to hyperglycemia Continue to monitor Microcytic anemia Stool studies pending If negative, patient will need outpatient follow-up with GI Morbid obesity Lifestyle change CODE STATUS: Full DVT prophylaxis: Heparin Disposition: Continue to treat mild dyspnea, asthma with superimposed bilateral Covid pneumonia. Will need to give blood glucose under control since this is causing the patient to be nauseated. History Interval history: Patient seen and examined, states that she is feeling a bit better, blood glucose still not controlled, most likely secondary to infection per coronavirus. ID involved, continue treatment for pneumonia. Hospitalist Physical - Physical exam Narrative exam: General appearance: Present: Obese, no acute distress, well-nourished - EENT Eyes: Present: PERRL, EOM intact ENT: hearing intact, clear oral mucosa - Respiratory Respiratory effort: normal Respiratory: bilateral: Minimal crackles heard in middle left lobe of the lung, right lung clear - Cardiovascular Rhythm: regular Heart Sounds: Present: S1 & S2. Absent: rub, click - Extremities Extremities: no ischemia, No edema, normal temperature, normal color, Full ROM - Abdominal General gastrointestinal: soft, non-tender, non-distended, normal bowel sounds - Integumentary Integumentary: Present: clear, warm, dry, normal turgor - Neurologic Neurologic: CNII-XII intact, no focal deficits, moves all extremities - Constitutional Vitals: Temp Pulse Resp BP Pulse Ox 98.7 F 84 22 144/57 90 05/16/20 12:38 05/16/20 12:38 05/16/20 12:38 05/16/20 12:38 05/16/20 12:38 General appearance: Present: no acute distress, well-nourished HEART Score - HEART Score Troponin: Troponin T 0.027 ng/mL (0.00-0.029) 05/15/20 14:08 Results - Labs CBC & Chem 7: 05/16/20 04:56 05/16/20 04:56 Labs: Laboratory Last Values WBC 3.6 K/mm3 (4.5-11.0) L 05/16/20 04:56 RBC 3.56 M/mm3 (3.65-5.03) L 05/16/20 04:56 Hgb 8.7 gm/dl (10.1-14.3) L 05/16/20 04:56 Hct 27.5 % (30.3-42.9) L 05/16/20 04:56 MCV 77 fl (79-97) L 05/16/20 04:56 MCH 25 pg (28-32) L 05/16/20 04:56 MCHC 32 % (30-34) 05/16/20 04:56 RDW 18.6 % (13.2-15.2) H 05/16/20 04:56 Plt Count 223 K/mm3 (140-440) 05/16/20 04:56 Lymph % (Auto) 9.4 % (13.4-35.0) L 05/16/20 04:56 [place] % (Auto) 4.2 % (0.0-7.3) 05/16/20 04:56 Eos % (Auto) 0.0 % (0.0-4.3) 05/16/20 04:56 Baso % (Auto) 0.2 % (0.0-1.8) 05/16/20 04:56 Lymph # (Auto) 0.3 K/mm3 (1.2-5.4) L 05/16/20 04:56 [place] # (Auto) 0.2 K/mm3 (0.0-0.8) 05/16/20 04:56 Eos # (Auto) 0.0 K/mm3 (0.0-0.4) 05/16/20 04:56 Baso # (Auto) 0.0 K/mm3 (0.0-0.1) 05/16/20 04:56 Seg Neutrophils % 86.2 % (40.0-70.0) H 05/16/20 04:56 Seg Neutrophils # 3.1 K/mm3 (1.8-7.7) 05/16/20 04:56 PT 12.9 Sec. (12.2-14.9) 05/16/20 04:56 INR 0.98 (0.87-1.13) 05/16/20 04:56 D-Dimer 270.88 ng/mlDDU (0-234) H 05/15/20 14:08 Sodium 130 mmol/L (137-145) L 05/16/20 04:56 Potassium 4.3 mmol/L (3.6-5.0) 05/16/20 04:56 Chloride 96.3 mmol/L (98-107) L 05/16/20 04:56 Carbon Dioxide 21 mmol/L (22-30) L 05/16/20 04:56 Anion Gap 17 mmol/L 05/16/20 04:56 BUN 34 mg/dL (7-17) H 05/16/20 04:56 Creatinine 1.4 mg/dL (0.6-1.2) H 05/16/20 04:56 Estimated GFR 46 ml/min 05/16/20 04:56 BUN/Creatinine Ratio 24 % 05/16/20 04:56 Glucose 361 mg/dL (65-100) H 05/16/20 04:56 POC Glucose 400 mg/dL (70-105) H 05/16/20 12:35 Lactic Acid 0.80 mmol/L (0.7-2.0) 05/15/20 20:15 Calcium 8.3 mg/dL (8.4-10.2) L 05/16/20 04:56 Ferritin 43.7 ng/mL (10.0-200.0) 05/15/20 14:08 Total Bilirubin 0.30 mg/dL (0.1-1.2) 05/16/20 04:56 AST 20 units/L (5-40) 05/16/20 04:56 ALT 15 units/L (7-56) 05/16/20 04:56 Alkaline Phosphatase 78 units/L (35-129) 05/16/20 04:56 Lactate Dehydrogenase 296 units/L (91-180) H 05/15/20 14:08 Troponin T 0.027 ng/mL (0.00-0.029) 05/15/20 14:08 C-Reactive Protein 10.50 mg/dL (0.00-1.30) H 05/15/20 14:08 NT-Pro-B Natriuret Pep 410.2 pg/mL (0-900) 05/15/20 14:08 Total Protein 6.7 g/dL (6.3-8.2) 05/16/20 04:56 Albumin 3.2 g/dL (3.9-5) L 05/16/20 04:56 Albumin/Globulin Ratio 0.9 % 05/16/20 04:56 Lipase 31 units/L (13-60) 05/15/20 14:08 Procalcitonin 0.25 ng/mL (<0.15) 05/15/20 14:08 Coronavirus (PCR) Positive (Negative) A 05/16/20 Unknown Microbiology: Microbiology 05/15/20 16:42 Peripheral/Venous Blood Culture - Preliminary Culture in Progress 05/15/20 16:57 Peripheral/Venous Blood Culture - Preliminary Culture in Progress Joshua/IV: Voiding Method Toilet IV Catheter Type [Left Upper INT / Saline Lock arm] Active Medications - Current Medications Current Medications: Generic Name Dose Route Start Last Admin Trade Name Freq PRN Reason Stop Dose Admin Acetaminophen 650 mg 05/15/20 18:11 Acetaminophen 325 Mg Tab PO Q4H PRN Pain MILD(1-3)/Fever >100.5/ARNETT Albuterol 2 puff 05/16/20 10:42 Albuterol 8.5 Gm Mdi Inhalation IH Q4HRT PRN Shortness Of Breath Amlodipine Besylate 10 mg 05/16/20 10:00 05/16/20 09:45 Amlodipine 10 Mg Tab PO 10 mg QDAY [facility] Administration Atorvastatin Calcium 80 mg 05/15/20 22:00 05/15/20 22:25 Atorvastatin 40 Mg Tab PO 80 mg QHS [facility] Administration Chlorthalidone 25 mg 05/16/20 10:00 05/16/20 09:45 Chlorthalidone 25 Mg Tab PO 25 mg QDAY [facility] Administration Dexamethasone 6 mg 05/16/20 10:00 05/16/20 09:45 Dexamethasone 4 Mg/Ml Vial IV 05/24/20 10:01 6 mg Q24HR [facility] Administration Dextrose 50 ml 05/15/20 18:11 Dextrose 50% In Water (25gm) 50 Ml Syringe IV Q30MIN PRN Hypoglycemia Protocol Guaifenesin 10 ml 05/15/20 22:22 05/16/20 14:37 Guaifenesin Dm 200/20 Mg Oral Liqd 10 Ml PO 10 ml Q4H PRN Administration Cough Ceftriaxone Sodium 2 gm in 100 mls @ 200 mls/hr 05/16/20 19:00 Rocephin/Ns 2 Gm/100 Ml IV Q24H [facility] Protocol Azithromycin 500 mg in 250 mls @ 250 mls/hr 05/16/20 19:00 Zithromax/Ns IV 05/19/20 19:59 Q24H [facility] Protocol Insulin Human Isoph/Insulin Regular 16 unit 05/16/20 17:00 Insulin Nph/Regular 70/30 Inj SUB-Q BIDDIAB [facility] Insulin Human Lispro 0 unit 05/15/20 22:00 05/16/20 11:30 Insulin Lispro 100 Unit/Ml SUB-Q 10 unit ACHS [facility] Administration Protocol Insulin Human Lispro 5 unit 05/16/20 15:15 Insulin Lispro 100 Unit/Ml SUB-Q 05/16/20 17:00 ONCE@1515 NR Lisinopril 40 mg 05/16/20 10:00 05/16/20 09:45 Lisinopril 40 Mg Tab PO 40 mg DAILY [facility] Administration Magnesium Hydroxide 30 ml 05/15/20 18:11 Magnesium Hydroxide (Mom) Oral Liqd Udc PO Q4H PRN Constipation Morphine Sulfate 2 mg 05/15/20 18:11 Morphine 2 Mg/1 Ml Inj IV Q4H PRN Pain, Moderate (4-6) Ondansetron HCl 4 mg 05/15/20 18:11 Ondansetron 4 Mg/2 Ml Inj IV Q8H PRN Nausea And Vomiting Sodium Chloride 10 ml 05/15/20 22:00 05/16/20 09:45 Sodium Chloride 0.9% 10 Ml Flush Syringe IV 10 ml BID [facility] Administration Sodium Chloride 10 ml 05/15/20 18:11 Sodium Chloride 0.9% 10 Ml Flush Syringe IV PRN PRN LINE FLUSH Nutrition/Malnutrition Assess - Dietary Evaluation Nutrition/Malnutrition Findings: Nutrition Notes Start: 05/16/20 12:00 Freq: Status: Active Protocol: Document 05/16/20 12:00 EN (Rec: 05/16/20 12:07 EN [id number]) Co-Sign 05/16/20 12:00 MK Nutrition Notes Need for Assessment generated from: 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 No Miguel A score in chart and RN reports pt does not have any wounds. Pt reports UBW of 290lbs 2 weeks ago. 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 Pt consumed 100% of breakfast. Pt denies N /V/D and has no food preferences. Pt unavailable for diet education at this time d/t heading to the shower . Percent of energy/protein needs met: 100%/100% Burn Absent Trauma Absent GI Symptoms None Food Allergy No Current % PO Good (75-100%) Minimum of two criteria No physical signs of malnutrition #1 Nutrition Diagnosis No nutrition diagnosis at this time Is patient on ventilator? No Is Patient Ambulatory and/or Out of Bed No REE-([facility]-confined to bed) 2274.336 Kcal/Kg value to use for calculation 14 Approximate Energy Requirements Using 1821 kcal/Kg Calculation Used for Recommendations Kcal/kg Additional Notes Protein: 0.8-1g/kg AdBW 96kg ( 77-96g) Fluid: 1ml/kcal Nutrition Intervention Change Diet Order: Continue current diet Goal #1 Meet at least 75% of energy and protein needs via PO Anticipated Discharge Needs: Consistent CHO Follow-Up By: 05/21/20 Additional Comments F/u for diet education needs
[2020-05-16] MEDS: HEPARIN 5,000 UNIT/1 ML VIAL SUB-Q SCH ×2 (15:38→21:49)
[2020-05-16] MEDS ORDERED: INSULIN NPH/REGULAR 70/30 INJ SUB-Q SCH ×2 (17:00)
[2020-05-16] MEDS: cefTRIAXone/NS 2 GM/100 ML 2 GM/100 ML BAG IV SCH (18:34)
[2020-05-16] MEDS ORDERED: LIP THERAPY VASELINE TP PRN (18:58)
[2020-05-16] MEDS: AZITHROMYCIN/NS 500 MG/250 ML 500 MG/250 ML BAG IV SCH (19:23)
[2020-05-17 06:07] LABS: Albumin 3.2 g/dL (3.9-5); Calcium 8.4 mg/dL (8.4-10.2)
[2020-05-17] MEDS ORDERED: INSULIN NPH/REGULAR 70/30 INJ SUB-Q SCH (08:00)
[2020-05-17] MEDS: guaiFENesin DM 200/20 MG ORAL LIQD 10 ML PO PRN ×2 (09:19→21:01)
[2020-05-17] MEDS: INSULIN LISPRO 100 UNIT/ML SUB-Q SCH ×4 (09:19→23:35)
[2020-05-17] MEDS: dexAMETHasone 4 MG/ML VIAL IV SCH (09:20)
[2020-05-17] MEDS: amLODIPine 10 MG TAB PO SCH (09:20)
[2020-05-17] MEDS: LISINOPRIL 40 MG TAB PO SCH (09:20)
[2020-05-17] MEDS: CHLORTHALIDONE 25 MG TAB PO SCH (09:20)
[2020-05-17] MEDS: HEPARIN 5,000 UNIT/1 ML VIAL SUB-Q SCH ×2 (09:21→21:04)
[2020-05-17] MEDS ORDERED: REMDESIVIR 100 MG VIAL IV ONE (10:00)
[2020-05-17] MEDS ORDERED: REMDESIVIR 200 MG in SODIUM CHLORIDE 0.9% 250ML 250 ML IV ONE (10:00)
[2020-05-17] MEDS: SODIUM CHLORIDE 0.9% 50 ML IVPB IV SCH (11:00)
--- NOTE | 2020-05-17 11:36 | Progress Note ---
Assessment and Plan Assessment and plan: 65-year-old female who presents with nausea vomiting and shortness of breath. Patient has been confirmed with Covid infection. Plan: Sepsis secondary to Covid pneumonia Bilateral pulmonary infiltrates seen on chest x-ray, reviewed Infectious disease consulted Dexamethasone IV, patient started on remdesivir Patient currently on azithromycin and ceftriaxone Blood cultures pending Hypertension Chlorthalidone, amlodipine, Diabetes mellitus type 2, with hyperglycemia, insulin-dependent Insulin sliding scale Patient states that she takes 70/30 16 units twice daily. Will most likely require higher level of insulin management due to dexamethasone usage Intermittent asthma Albuterol MDI breathing treatment Dexamethasone Pseudohyponatremia Secondary to hyperglycemia Continue to monitor Microcytic anemia Stool studies pending If negative, patient will need outpatient follow-up with GI Morbid obesity Lifestyle change CODE STATUS: Full DVT prophylaxis: Heparin Disposition: Continue inpatient care. Control blood glucose, continue treatment for Covid. History Interval history: Patient seen, states that she is breathing okay. Currently on dexamethasone, states that she did get out of bed. No fevers or chills overnight. Blood gl ucose needs better control, patient states that she was eating bread and patient is on dexamethasone. Hospitalist Physical - Physical exam Narrative exam: General appearance: Present: Obese, no acute distress, well-nourished - EENT Eyes: Present: PERRL, EOM intact ENT: hearing intact, clear oral mucosa - Respiratory Respiratory effort: normal Respiratory: bilateral: Minimal crackles heard in middle left lobe of the lung, right lung clear - Cardiovascular Rhythm: regular Heart Sounds: Present: S1 & S2. Absent: rub, click - Extremities Extremities: no ischemia, No edema, normal temperature, normal color, Full ROM - Abdominal General gastrointestinal: soft, non-tender, non-distended, normal bowel sounds - Integumentary Integumentary: Present: clear, warm, dry, normal turgor - Neurologic Neurologic: CNII-XII intact, no focal deficits, moves all extremities - Constitutional Vitals: Temp Pulse Resp BP Pulse Ox 98.4 F 75 18 143/62 98 05/17/20 05:29 05/17/20 05:29 05/17/20 05:29 05/17/20 05:29 05/17/20 05:29 General appearance: Present: no acute distress, well-nourished HEART Score - HEART Score Troponin: Troponin T 0.027 ng/mL (0.00-0.029) 05/15/20 14:08 Results - Labs CBC & Chem 7: 05/16/20 04:56 05/17/20 04:55 Labs: Laboratory Last Values WBC 3.6 K/mm3 (4.5-11.0) L 05/16/20 04:56 RBC 3.56 M/mm3 (3.65-5.03) L 05/16/20 04:56 Hgb 8.7 gm/dl (10.1-14.3) L 05/16/20 04:56 Hct 27.5 % (30.3-42.9) L 05/16/20 04:56 MCV 77 fl (79-97) L 05/16/20 04:56 MCH 25 pg (28-32) L 05/16/20 04:56 MCHC 32 % (30-34) 05/16/20 04:56 RDW 18.6 % (13.2-15.2) H 05/16/20 04:56 Plt Count 223 K/mm3 (140-440) 05/16/20 04:56 Lymph % (Auto) 9.4 % (13.4-35.0) L 05/16/20 04:56 Bartholomew % (Auto) 4.2 % (0.0-7.3) 05/16/20 04:56 Eos % (Auto) 0.0 % (0.0-4.3) 05/16/20 04:56 Baso % (Auto) 0.2 % (0.0-1.8) 05/16/20 04:56 Lymph # (Auto) 0.3 K/mm3 (1.2-5.4) L 05/16/20 04:56 Bartholomew # (Auto) 0.2 K/mm3 (0.0-0.8) 05/16/20 04:56 Eos # (Auto) 0.0 K/mm3 (0.0-0.4) 05/16/20 04:56 Baso # (Auto) 0.0 K/mm3 (0.0-0.1) 05/16/20 04:56 Seg Neutrophils % 86.2 % (40.0-70.0) H 05/16/20 04:56 Seg Neutrophils # 3.1 K/mm3 (1.8-7.7) 05/16/20 04:56 PT 12.9 Sec. (12.2-14.9) 05/16/20 04:56 INR 0.98 (0.87-1.13) 05/16/20 04:56 D-Dimer 270.88 ng/mlDDU (0-234) H 05/15/20 14:08 Sodium 131 mmol/L (137-145) L 05/17/20 04:55 Potassium 4.7 mmol/L (3.6-5.0) 05/17/20 04:55 Chloride 97.5 mmol/L (98-107) L 05/17/20 04:55 Carbon Dioxide 22 mmol/L (22-30) 05/17/20 04:55 Anion Gap 16 mmol/L 05/17/20 04:55 BUN 44 mg/dL (7-17) H 05/17/20 04:55 Creatinine 1.2 mg/dL (0.6-1.2) 05/17/20 04:55 Estimated GFR 55 ml/min 05/17/20 04:55 BUN/Creatinine Ratio 37 % 05/17/20 04:55 Glucose 360 mg/dL (65-100) H 05/17/20 04:55 POC Glucose 341 mg/dL (70-105) H 05/17/20 07:37 Hemoglobin A1c 8.6 % (4-6) H 05/17/20 04:55 Lactic Acid 0.80 mmol/L (0.7-2.0) 05/15/20 20:15 Calcium 8.4 mg/dL (8.4-10.2) 05/17/20 04:55 Ferritin 43.7 ng/mL (10.0-200.0) 05/15/20 14:08 Total Bilirubin 0.20 mg/dL (0.1-1.2) 05/17/20 04:55 AST 22 units/L (5-40) 05/17/20 04:55 ALT 17 units/L (7-56) 05/17/20 04:55 Alkaline Phosphatase 74 units/L (35-129) 05/17/20 04:55 Lactate Dehydrogenase 296 units/L (91-180) H 05/15/20 14:08 Troponin T 0.027 ng/mL (0.00-0.029) 05/15/20 14:08 C-Reactive Protein 10.50 mg/dL (0.00-1.30) H 05/15/20 14:08 NT-Pro-B Natriuret Pep 410.2 pg/mL (0-900) 05/15/20 14:08 Total Protein 6.6 g/dL (6.3-8.2) 05/17/20 04:55 Albumin 3.2 g/dL (3.9-5) L 05/17/20 04:55 Albumin/Globulin Ratio 0.9 % 05/17/20 04:55 Lipase 31 units/L (13-60) 05/15/20 14:08 Procalcitonin 0.25 ng/mL (<0.15) 05/15/20 14:08 Coronavirus (PCR) Positive (Negative) A 05/16/20 Unknown Microbiology: Microbiology 05/15/20 16:42 Peripheral/Venous Blood Culture - Preliminary NO GROWTH AFTER 24 HOURS 05/15/20 16:57 Peripheral/Venous Blood Culture - Preliminary NO GROWTH AFTER 24 HOURS Joshua/IV: Voiding Method Toilet IV Catheter Type [Left Upper INT / Saline Lock arm] Active Medications - Current Medications Current Medications: Generic Name Dose Route Start Last Admin Trade Name Freq PRN Reason Stop Dose Admin Acetaminophen 650 mg 05/15/20 18:11 Acetaminophen 325 Mg Tab PO Q4H PRN Pain MILD(1-3)/Fever >100.5/ARNETT Albuterol 2 puff 05/16/20 10:42 Albuterol 8.5 Gm Mdi Inhalation IH Q4HRT PRN Shortness Of Breath Amlodipine Besylate 10 mg 05/16/20 10:00 05/17/20 09:20 Amlodipine 10 Mg Tab PO 10 mg QDAY CALIN Administration Atorvastatin Calcium 80 mg 05/15/20 22:00 05/16/20 21:43 Atorvastatin 40 Mg Tab PO 80 mg QHS CALIN Administration Chlorthalidone 25 mg 05/16/20 10:00 05/17/20 09:20 Chlorthalidone 25 Mg Tab PO 25 mg QDAY CALIN Administration Dexamethasone 6 mg 05/16/20 10:00 05/17/20 09:20 Dexamethasone 4 Mg/Ml Vial IV 05/24/20 10:01 6 mg Q24HR CALIN Administration Dextrose 50 ml 05/15/20 18:11 Dextrose 50% In Water (25gm) 50 Ml Syringe IV Q30MIN PRN Hypoglycemia Protocol Guaifenesin 10 ml 05/15/20 22:22 05/17/20 09:19 Guaifenesin Dm 200/20 Mg Oral Liqd 10 Ml PO 10 ml Q4H PRN Administration Cough Heparin Sodium (Porcine) 5,000 unit 05/16/20 15:30 05/17/20 09:21 Heparin 5,000 Unit/1 Ml Vial SUB-Q 5,000 unit Q12HR CALIN Administration Hydrophilic Ointment 1 applic 05/16/20 18:58 05/16/20 21:58 Lip Therapy Vaseline TP 1 applic DIRECT PRN Administration Dry Lips Ceftriaxone Sodium 2 gm in 100 mls @ 200 mls/hr 05/16/20 19:00 05/16/20 18:34 Rocephin/Ns 2 Gm/100 Ml IV 05/19/20 22:00 200 mls/hr Q24H CALIN Administration Protocol Azithromycin 500 mg in 250 mls @ 250 mls/hr 05/16/20 19:00 05/16/20 19:23 Zithromax/Ns IV 05/17/20 22:00 250 mls/hr Q24H CALIN Administration Protocol REMDESIVIR 100 mg/ Sodium 250 mls @ 500 mls/hr 05/18/20 21:00 Chloride IV 05/21/20 21:29 Q24HR@2100 CALIN Insulin Human Isoph/Insulin Regular 30 unit 05/17/20 08:00 05/17/20 09:26 Insulin Nph/Regular 70/30 Inj SUB-Q 30 unit BIDDIAB CALIN Administration Insulin Human Lispro 0 unit 05/15/20 22:00 05/17/20 09:19 Insulin Lispro 100 Unit/Ml SUB-Q 8 unit ACHS CALIN Administration Protocol Lisinopril 40 mg 05/16/20 10:00 05/17/20 09:20 Lisinopril 40 Mg Tab PO 40 mg DAILY CALIN Administration Magnesium Hydroxide 30 ml 05/15/20 18:11 Magnesium Hydroxide (Mom) Oral Liqd Udc PO Q4H PRN Constipation Morphine Sulfate 2 mg 05/15/20 18:11 Morphine 2 Mg/1 Ml Inj IV Q4H PRN Pain, Moderate (4-6) Ondansetron HCl 4 mg 01/28/21 18:11 Ondansetron 4 Mg/2 Ml Inj IV Q8H PRN Nausea And Vomiting Sodium Chloride 10 ml 05/15/20 22:00 05/17/20 09:21 Sodium Chloride 0.9% 10 Ml Flush Syringe IV 10 ml BID CALIN Administration Sodium Chloride 10 ml 05/15/20 18:11 Sodium Chloride 0.9% 10 Ml Flush Syringe IV PRN PRN LINE FLUSH Sodium Chloride 50 ml 05/17/20 10:30 05/17/20 11:00 Sodium Chloride 0.9% 50 Ml Ivpb IV 05/21/20 21:01 50 ml Q24HR@2100 CALIN Administration Nutrition/Malnutrition Assess - Dietary Evaluation Nutrition/Malnutrition Findings: Nutrition Notes Start: 05/16/20 12:00 Freq: Status: Active Protocol: Document 05/16/20 12:00 EN (Rec: 05/16/20 12:07 EN [email or web address]) Co-Sign 05/16/20 12:00 MK Nutrition Notes Need for Assessment generated from: MD Order,supervisor engine 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 No Miguel A score in chart and RN reports pt does not have any wounds. Pt reports UBW of 290lbs 2 weeks ago. 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 Pt consumed 100% of breakfast. Pt denies N /V/D and has no food preferences. Pt unavailable for diet education at this time d/t heading to the shower . Percent of energy/protein needs met: 100%/100% Burn Absent Trauma Absent GI Symptoms None Food Allergy No Current % PO Good (75-100%) Minimum of two criteria No physical signs of malnutrition #1 Nutrition Diagnosis No nutrition diagnosis at this time Is patient on ventilator? No Is Patient Ambulatory and/or Out of Bed No REE-([facility]-confined to bed) 2274.336 Kcal/Kg value to use for calculation 14 Approximate Energy Requirements Using 1821 kcal/Kg Calculation Used for Recommendations Kcal/kg Additional Notes Protein: 0.8-1g/kg AdBW 96kg ( 77-96g) Fluid: 1ml/kcal Nutrition Intervention Change Diet Order: Continue current diet Goal #1 Meet at least 75% of energy and protein needs via PO Anticipated Discharge Needs: Consistent CHO Follow-Up By: 05/21/20 Additional Comments F/u for diet education needs
[2020-05-17] MEDS ORDERED: FUROSEMIDE 40 MG/4 ML INJ IV ONE (12:08)
[2020-05-17] MEDS: INSULIN NPH/REGULAR 70/30 INJ SUB-Q SCH (19:04)
[2020-05-17] MEDS: cefTRIAXone/NS 2 GM/100 ML 2 GM/100 ML BAG IV SCH (19:04)
[2020-05-17] MEDS: AZITHROMYCIN/NS 500 MG/250 ML 500 MG/250 ML BAG IV SCH (19:05)
[2020-05-18 06:53] LABS: Alanine Aminotransferase 17 units/L (7-56); Albumin 3.3 g/dL (3.9-5); BUN/Creatinine Ratio 50; Blood Urea Nitrogen 50 mg/dL (7-17); Calcium 8.8 mg/dL (8.4-10.2); Hemolysis Index 0
[2020-05-18] MEDS: INSULIN LISPRO 100 UNIT/ML SUB-Q SCH ×7 (08:37→22:58)
[2020-05-18] MEDS: INSULIN NPH/REGULAR 70/30 INJ SUB-Q SCH ×2 (08:38→19:04)
--- NOTE | 2020-05-18 08:58 | XRay Report ---
CHEST 1 VIEW 05/18/2020 8:18 AM INDICATION / CLINICAL INFORMATION: covid pna. COMPARISON: 05/15/2020. FINDINGS: SUPPORT DEVICES: None. HEART / MEDIASTINUM: Stable. LUNGS / PLEURA: There has been significant interval improvement of patchy pulmonary opacities with so me residual opacities within the peripheral lungs bilaterally. No pneumothorax. ADDITIONAL FINDINGS: No significant additional findings. IMPRESSION: 1. Interval improvement. Signer Name: Jamar Gastelum MD Signed: 05/18/2020 8:53 AM Workstation Name: [id number]
[2020-05-18] MEDS: DEXAMETHASONE 4 MG TAB PO SCH (10:25)
[2020-05-18] MEDS: CHLORTHALIDONE 25 MG TAB PO SCH (10:25)
[2020-05-18] MEDS: HEPARIN 5,000 UNIT/1 ML VIAL SUB-Q SCH ×2 (10:26→21:24)
[2020-05-18] MEDS: LISINOPRIL 40 MG TAB PO SCH (10:26)
[2020-05-18] MEDS: amLODIPine 10 MG TAB PO SCH (10:28)
[2020-05-18] MEDS: guaiFENesin DM 200/20 MG ORAL LIQD 10 ML PO PRN ×2 (10:45→20:21)
--- NOTE | 2020-05-18 11:50 | Progress Note ---
Assessment and Plan Assessment and plan: 65-year-old female who presents with nausea vomiting and shortness of breath. Patient has been confirmed with Covid infection. Plan: Sepsis secondary to Covid pneumonia Bilateral pulmonary infiltrates seen on chest x-ray, reviewed Infectious disease consulted Dexamethasone IV, remdesivir Patient currently on azithromycin and ceftriaxone Blood cultures pending Hypertension Chlorthalidone, amlodipine, Diabetes mellitus type 2, with hyperglycemia, insulin-dependent A1c 8.6 Patient states that she takes 70/30 16 units twice daily, however patient states that she is running in the 200s to 300s at home. Will need to be adjusted at the time of discharge if she continues dexamethasone Currently 70/30 with supplemental Humalog AC and sliding scale Intermittent asthma Albuterol MDI breathing treatment Dexamethasone Pseudohyponatremia Secondary to hyperglycemia Continue to monitor Microcytic anemia Stool studies pending Morbid obesity Lifestyle change CODE STATUS: Full DVT prophylaxis: Heparin Disposition: Continue inpatient care. Control blood glucose, continue treatment for Covid. History Interval history: Patient seen and examined, no overnight events. Blood glucose better controlled. Has mild shortness of breath with exertion. Hospitalist Physical - Physical exam Narrative exam: General appearance: Present: Obese, no acute distress, well-nourished - EENT Eyes: Present: PERRL, EOM intact ENT: hearing intact, clear oral mucosa - Respiratory Respiratory effort: normal Respiratory: bilateral: Very faint crackles heard in left lung field. Right l mahi field clear to auscultation - Cardiovascular Rhythm: regular Heart Sounds: Present: S1 & S2. Absent: rub, click - Extremities Extremities: no ischemia, No edema, normal temperature, normal color, Full ROM - Abdominal General gastrointestinal: soft, non-tender, non-distended, normal bowel sounds - Integumentary Integumentary: Present: clear, warm, dry, normal turgor - Neurologic Neurologic: CNII-XII intact, no focal deficits, moves all extremities - Constitutional Vitals: Temp Pulse Resp BP Pulse Ox 98.2 F 79 20 137/62 99 05/18/20 11:22 05/18/20 11:22 05/18/20 11:22 05/18/20 11:22 05/18/20 11:22 HEART Score - HEART Score Troponin: Troponin T 0.027 ng/mL (0.00-0.029) 05/15/20 14:08 Results - Labs CBC & Chem 7: 05/16/20 04:56 05/18/20 04:52 Labs: Laboratory Last Values WBC 3.6 K/mm3 (4.5-11.0) L 05/16/20 04:56 RBC 3.56 M/mm3 (3.65-5.03) L 05/16/20 04:56 Hgb 8.7 gm/dl (10.1-14.3) L 05/16/20 04:56 Hct 27.5 % (30.3-42.9) L 05/16/20 04:56 MCV 77 fl (79-97) L 05/16/20 04:56 MCH 25 pg (28-32) L 05/16/20 04:56 MCHC 32 % (30-34) 05/16/20 04:56 RDW 18.6 % (13.2-15.2) H 05/16/20 04:56 Plt Count 223 K/mm3 (140-440) 05/16/20 04:56 Lymph % (Auto) 9.4 % (13.4-35.0) L 05/16/20 04:56 [place] % (Auto) 4.2 % (0.0-7.3) 05/16/20 04:56 Eos % (Auto) 0.0 % (0.0-4.3) 05/16/20 04:56 Baso % (Auto) 0.2 % (0.0-1.8) 05/16/20 04:56 Lymph # (Auto) 0.3 K/mm3 (1.2-5.4) L 05/16/20 04:56 [place] # (Auto) 0.2 K/mm3 (0.0-0.8) 05/16/20 04:56 Eos # (Auto) 0.0 K/mm3 (0.0-0.4) 05/16/20 04:56 Baso # (Auto) 0.0 K/mm3 (0.0-0.1) 05/16/20 04:56 Seg Neutrophils % 86.2 % (40.0-70.0) H 05/16/20 04:56 Seg Neutrophils # 3.1 K/mm3 (1.8-7.7) 05/16/20 04:56 PT 12.9 Sec. (12.2-14.9) 05/16/20 04:56 INR 0.98 (0.87-1.13) 05/16/20 04:56 D-Dimer 270.88 ng/mlDDU (0-234) H 05/15/20 14:08 Sodium 131 mmol/L (137-145) L 05/18/20 04:52 Potassium 4.3 mmol/L (3.6-5.0) 05/18/20 04:52 Chloride 96.9 mmol/L (98-107) L 05/18/20 04:52 Carbon Dioxide 23 mmol/L (22-30) 05/18/20 04:52 Anion Gap 15 mmol/L 05/18/20 04:52 BUN 50 mg/dL (7-17) H 05/18/20 04:52 Creatinine 1.0 mg/dL (0.6-1.2) 05/18/20 04:52 Estimated GFR > 60 ml/min 05/18/20 04:52 BUN/Creatinine Ratio 50 % 05/18/20 04:52 Glucose 180 mg/dL (65-100) H 05/18/20 04:52 POC Glucose 273 mg/dL (70-105) H 05/17/20 22:19 Hemoglobin A1c 8.6 % (4-6) H 05/17/20 04:55 Lactic Acid 0.80 mmol/L (0.7-2.0) 05/15/20 20:15 Calcium 8.8 mg/dL (8.4-10.2) 05/18/20 04:52 Ferritin 43.7 ng/mL (10.0-200.0) 05/15/20 14:08 Total Bilirubin 0.20 mg/dL (0.1-1.2) 05/18/20 04:52 AST 21 units/L (5-40) 05/18/20 04:52 ALT 17 units/L (7-56) 05/18/20 04:52 Alkaline Phosphatase 73 units/L (35-129) 05/18/20 04:52 Lactate Dehydrogenase 296 units/L (91-180) H 05/15/20 14:08 Troponin T 0.027 ng/mL (0.00-0.029) 05/15/20 14:08 C-Reactive Protein 10.50 mg/dL (0.00-1.30) H 05/15/20 14:08 NT-Pro-B Natriuret Pep 410.2 pg/mL (0-900) 05/15/20 14:08 Total Protein 6.7 g/dL (6.3-8.2) 05/18/20 04:52 Albumin 3.3 g/dL (3.9-5) L 05/18/20 04:52 Albumin/Globulin Ratio 1.0 % 05/18/20 04:52 Lipase 31 units/L (13-60) 05/15/20 14:08 Procalcitonin 0.25 ng/mL (<0.15) 05/15/20 14:08 Coronavirus (PCR) Positive (Negative) A 05/16/20 Unknown Microbiology: Microbiology 05/15/20 16:42 Peripheral/Venous Blood Culture - Preliminary NO GROWTH AFTER 48 HOURS 05/15/20 16:57 Peripheral/Venous Blood Culture - Preliminary NO GROWTH AFTER 48 HOURS Joshua/IV: Voiding Method Toilet IV Catheter Type [Left Upper INT / Saline Lock arm] Active Medications - Current Medications Current Medications: Generic Name Dose Route Start Last Admin Trade Name Freq PRN Reason Stop Dose Admin Acetaminophen 650 mg 05/15/20 18:11 Acetaminophen 325 Mg Tab PO Q4H PRN Pain MILD(1-3)/Fever >100.5/ARNETT Albuterol 2 puff 05/16/20 10:42 Albuterol 8.5 Gm Mdi Inhalation IH Q4HRT PRN Shortness Of Breath Amlodipine Besylate 10 mg 05/16/20 10:00 05/18/20 10:28 Amlodipine 10 Mg Tab PO 10 mg QDAY CALIN Administration Atorvastatin Calcium 80 mg 05/15/20 22:00 05/17/20 21:04 Atorvastatin 40 Mg Tab PO 80 mg QHS CALIN Administration Chlorthalidone 25 mg 05/16/20 10:00 05/18/20 10:25 Chlorthalidone 25 Mg Tab PO 25 mg QDAY CALIN Administration Dexamethasone 6 mg 05/18/20 10:00 05/18/20 10:25 Dexamethasone 4 Mg Tab PO 05/24/20 12:00 6 mg DAILY CALIN Administration Dextrose 50 ml 05/15/20 18:11 Dextrose 50% In Water (25gm) 50 Ml Syringe IV Q30MIN PRN Hypoglycemia Protocol Guaifenesin 10 ml 05/15/20 22:22 05/18/20 10:45 Guaifenesin Dm 200/20 Mg Oral Liqd 10 Ml PO 10 ml Q4H PRN Administration Cough Heparin Sodium (Porcine) 5,000 unit 05/16/20 15:30 05/18/20 10:26 Heparin 5,000 Unit/1 Ml Vial SUB-Q 5,000 unit Q12HR CALIN Administration Hydrophilic Ointment 1 applic 05/16/20 18:58 05/16/20 21:58 Lip Therapy Vaseline TP 1 applic DIRECT PRN Administration Dry Lips Ceftriaxone Sodium 2 gm in 100 mls @ 200 mls/hr 05/16/20 19:00 05/17/20 19:04 Rocephin/Ns 2 Gm/100 Ml IV 05/19/20 22:00 200 mls/hr Q24H CALIN Administration Protocol REMDESIVIR 100 mg/ Sodium 250 mls @ 500 mls/hr 05/18/20 21:00 Chloride IV 05/21/20 21:29 Q24HR@2100 CALIN Insulin Human Isoph/Insulin Regular 45 unit 05/17/20 16:54 05/18/20 08:38 Insulin Nph/Regular 70/30 Inj SUB-Q 45 unit BIDDIAB CALIN Administration Insulin Human Lispro 0 unit 05/15/20 22:00 05/18/20 08:37 Insulin Lispro 100 Unit/Ml SUB-Q 3 unit ACHS CALIN Administration Protocol Insulin Human Lispro 12 unit 05/18/20 07:30 05/18/20 08:37 Insulin Lispro 100 Unit/Ml SUB-Q 12 unit AC CALIN Administration Lisinopril 40 mg 05/16/20 10:00 05/18/20 10:26 Lisinopril 40 Mg Tab PO 40 mg DAILY CALIN Administration Magnesium Hydroxide 30 ml 05/15/20 18:11 Magnesium Hydroxide (Mom) Oral Liqd Udc PO Q4H PRN Constipation Morphine Sulfate 2 mg 05/15/20 18:11 Morphine 2 Mg/1 Ml Inj IV Q4H PRN Pain, Moderate (4-6) Ondansetron HCl 4 mg 05/15/20 18:11 Ondansetron 4 Mg/2 Ml Inj IV Q8H PRN Nausea And Vomiting Sodium Chloride 10 ml 05/15/20 22:00 05/18/20 10:28 Sodium Chloride 0.9% 10 Ml Flush Syringe IV 10 ml BID CALIN Administration Sodium Chloride 10 ml 05/15/20 18:11 Sodium Chloride 0.9% 10 Ml Flush Syringe IV PRN PRN LINE FLUSH Sodium Chloride 50 ml 05/17/20 10:30 05/17/20 11:00 Sodium Chloride 0.9% 50 Ml Ivpb IV 05/21/20 21:01 50 ml Q24HR@2100 CALIN Administration Nutrition/Malnutrition Assess - Dietary Evaluation Nutrition/Malnutrition Findings: Nutrition Notes Start: 05/16/20 12:00 Freq: Status: Active Protocol: Document 05/16/20 12:00 EN (Rec: 05/16/20 12:07 EN [email or web address]) Co-Sign 05/16/20 12:00 MK Nutrition Notes Need for Assessment generated from: MD Order,principal architect,MST, Education Initial or Follow up Assessment Current Diagnosis COPD,Diabetes,Hypertension, Hyperlipidemia Other Pertinent Diagnosis Pneu, Suspected COVID-19, Hyperglycemia, hypoxia Current Diet Cardiac/Consistent CHO Labs/Tests Na 130 BUN 34 Cr 1.4 BG 361 Pertinent Medications Humalog Height 5 ft 7.5 in Weight 130.09 kg Usual Body Weight 133 kg [place] Body Weight (kg) 62.50 BMI 44.2 Intake Prior to Admission Excellent Weight Status Morbidly Obese Subjective/Other Information MD order for diet education and RN screen for MST/Skin risk. No Miguel A score in chart and RN reports pt does not have any wounds. Pt reports UBW of 290lbs 2 weeks ago. 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 Pt consumed 100% of breakfast. Pt denies N /V/D and has no food preferences. Pt unavailable for diet education at this time d/t heading to the shower . Percent of energy/protein needs met: 100%/100% Burn Absent Trauma Absent GI Symptoms None Food Allergy No Current % PO Good (75-100%) Minimum of two criteria No physical signs of malnutrition #1 Nutrition Diagnosis No nutrition diagnosis at this time Is patient on ventilator? No Is Patient Ambulatory and/or Out of Bed No REE-([facility]confined to bed) 2274.336 Kcal/Kg value to use for calculation 14 Approximate Energy Requirements Using 1821 kcal/Kg Calculation Used for Recommendations Kcal/kg Additional Notes Protein: 0.8-1g/kg AdBW 96kg ( 77-96g) Fluid: 1ml/kcal Nutrition Intervention Change Diet Order: Continue current diet Goal #1 Meet at least 75% of energy and protein needs via PO Anticipated Discharge Needs: Consistent CHO Follow-Up By: 05/21/20 Additional Comments F/u for diet education needs
[2020-05-18] MEDS: cefTRIAXone/NS 2 GM/100 ML 2 GM/100 ML BAG IV SCH (19:08)
[2020-05-18] MEDS: SODIUM CHLORIDE 0.9% 50 ML IVPB IV SCH (21:24)
[2020-05-18] MEDS: REMDESIVIR 100 MG in SODIUM CHLORIDE 0.9% 250ML 250 ML IV SCH (21:24)
[2020-05-19] MEDS: INSULIN LISPRO 100 UNIT/ML SUB-Q SCH ×7 (07:30→22:42)
[2020-05-19 07:45] LABS: Hematocrit 28.8 % (30.3-42.9); Hemoglobin 9.2 gm/dl (10.1-14.3); Mean Corpuscular HGB Conc 32 % (30-34); Mean Corpuscular Volume 77 fl (79-97); Platelet Count 307 K/mm3 (140-440); Red Blood Count 3.76 M/mm3 (3.65-5.03); Red Cell Distribution Width 18.7 % (13.2-15.2)
[2020-05-19 08:03] LABS: Alanine Aminotransferase 20 units/L (7-56); Albumin 3.4 g/dL (3.9-5); BUN/Creatinine Ratio 48; Blood Urea Nitrogen 53 mg/dL (7-17); Calcium 8.5 mg/dL (8.4-10.2); Hemolysis Index 4
[2020-05-19] MEDS: INSULIN NPH/REGULAR 70/30 INJ SUB-Q SCH ×2 (08:45→16:30)
[2020-05-19] MEDS: DEXAMETHASONE 4 MG TAB PO SCH (09:05)
[2020-05-19] MEDS: guaiFENesin DM 200/20 MG ORAL LIQD 10 ML PO PRN ×2 (09:05→22:41)
[2020-05-19] MEDS: LISINOPRIL 40 MG TAB PO SCH (09:06)
[2020-05-19] MEDS: HEPARIN 5,000 UNIT/1 ML VIAL SUB-Q SCH ×2 (09:06→22:41)
[2020-05-19] MEDS: amLODIPine 10 MG TAB PO SCH (09:07)
[2020-05-19] MEDS: CHLORTHALIDONE 25 MG TAB PO SCH (09:07)
--- NOTE | 2020-05-19 10:12 | Progress Note ---
Assessment and Plan Assessment and plan: 65-year-old female who presents with nausea vomiting and shortness of breath. Patient has been confirmed with Covid infection. Plan: Sepsis secondary to Covid pneumonia Bilateral pulmonary infiltrates seen on chest x-ray, reviewed Infectious disease consulted Dexamethasone IV, remdesivir Patient currently on azithromycin and ceftriaxone Blood cultures negative today Hypertension Chlorthalidone, amlodipine, Diabetes mellitus type 2, with hyperglycemia, insulin-dependent A1c 8.6 Patient states that she takes 70/30 16 units twice daily, however patient states that she is running in the 200s to 300s at home. Will need to be adjusted at the time of discharge if she continues dexamethasone Currently 70/30 with supplemental Humalog AC and sliding scale Intermittent asthma Albuterol MDI breathing treatment Dexamethasone Pseudohyponatremia Secondary to hyperglycemia Continue to monitor Microcytic anemia Stool studies pending Morbid obesity Lifestyle change CODE STATUS: Full DVT prophylaxis: Heparin Disposition: Continue inpatient care. Control blood glucose, continue treatment for Covid. History Interval history: Patient seen and examined, pending walk test, patient may need oxygen at the time of discharge, states that she feels short of breath when she is walking. Blood glucose with better controlled. Hospitalist Physical - Physical exam Narrative exam: General appearance: Present: Obese, no acute distress, well-nourished - EENT Eyes: Present: PERRL, EOM intact ENT: hearing intact, clear oral mucosa - Respiratory Respiratory effort: normal, nasal cannula oxygen Respiratory: bilateral: Left and right lung hager clear to auscultation, no crackles wheezes or rhonchi heard - Cardiovascular Rhythm: regular Heart Sounds: Present: S1 & S2. Absent: rub, click - Extremities Extremities: no ischemia, No edema, normal temperature, normal color, Full ROM - Abdominal General gastrointestinal: soft, non-tender, non-distended, normal bowel sounds - Integumentary Integumentary: Present: clear, warm, dry, normal turgor - Neurologic Neurologic: CNII-XII intact, no focal deficits, moves all extremities - Constitutional Vitals: Temp Pulse Resp BP Pulse Ox 98.2 F 66 20 135/45 98 05/19/20 05:31 05/19/20 05:31 05/19/20 05:31 05/19/20 05:31 05/19/20 05:31 HEART Score - HEART Score Troponin: Troponin T 0.027 ng/mL (0.00-0.029) 05/15/20 14:08 Results - Labs CBC & Chem 7: 05/19/20 06:28 05/19/20 06:28 Labs: Laboratory Last Values WBC 6.1 K/mm3 (4.5-11.0) 05/19/20 06:28 RBC 3.76 M/mm3 (3.65-5.03) 05/19/20 06:28 Hgb 9.2 gm/dl (10.1-14.3) L 05/19/20 06:28 Hct 28.8 % (30.3-42.9) L 05/19/20 06:28 MCV 77 fl (79-97) L 05/19/20 06:28 MCH 24 pg (28-32) L 05/19/20 06:28 MCHC 32 % (30-34) 05/19/20 06:28 RDW 18.7 % (13.2-15.2) H 05/19/20 06:28 Plt Count 307 K/mm3 (140-440) 05/19/20 06:28 Lymph % (Auto) 9.4 % (13.4-35.0) L 05/16/20 04:56 [place] % (Auto) 4.2 % (0.0-7.3) 05/16/20 04:56 Eos % (Auto) 0.0 % (0.0-4.3) 05/16/20 04:56 Baso % (Auto) 0.2 % (0.0-1.8) 05/16/20 04:56 Lymph # (Auto) 0.3 K/mm3 (1.2-5.4) L 05/16/20 04:56 [place] # (Auto) 0.2 K/mm3 (0.0-0.8) 05/16/20 04:56 Eos # (Auto) 0.0 K/mm3 (0.0-0.4) 05/16/20 04:56 Baso # (Auto) 0.0 K/mm3 (0.0-0.1) 05/16/20 04:56 Seg Neutrophils % 86.2 % (40.0-70.0) H 05/16/20 04:56 Seg Neutrophils # 3.1 K/mm3 (1.8-7.7) 05/16/20 04:56 PT 12.9 Sec. (12.2-14.9) 05/16/20 04:56 INR 0.98 (0.87-1.13) 05/16/20 04:56 D-Dimer 270.88 ng/mlDDU (0-234) H 05/15/20 14:08 Sodium 133 mmol/L (137-145) L 05/19/20 06:28 Potassium 4.6 mmol/L (3.6-5.0) 05/19/20 06:28 Chloride 99.6 mmol/L (98-107) 05/19/20 06:28 Carbon Dioxide 24 mmol/L (22-30) 05/19/20 06:28 Anion Gap 14 mmol/L 05/19/20 06:28 BUN 53 mg/dL (7-17) H 05/19/20 06:28 Creatinine 1.1 mg/dL (0.6-1.2) 05/19/20 06:28 Estimated GFR > 60 ml/min 05/19/20 06:28 BUN/Creatinine Ratio 48 % 05/19/20 06:28 Glucose 265 mg/dL (65-100) H 05/19/20 06:28 POC Glucose 295 mg/dL (70-105) H 05/18/20 22:39 Hemoglobin A1c 8.6 % (4-6) H 05/17/20 04:55 Lactic Acid 0.80 mmol/L (0.7-2.0) 05/15/20 20:15 Calcium 8.5 mg/dL (8.4-10.2) 05/19/20 06:28 Ferritin 43.7 ng/mL (10.0-200.0) 05/15/20 14:08 Total Bilirubin 0.20 mg/dL (0.1-1.2) 05/19/20 06:28 AST 18 units/L (5-40) 05/19/20 06:28 ALT 20 units/L (7-56) 05/19/20 06:28 Alkaline Phosphatase 69 units/L (35-129) 05/19/20 06:28 Lactate Dehydrogenase 296 units/L (91-180) H 05/15/20 14:08 Troponin T 0.027 ng/mL (0.00-0.029) 05/15/20 14:08 C-Reactive Protein 10.50 mg/dL (0.00-1.30) H 05/15/20 14:08 NT-Pro-B Natriuret Pep 410.2 pg/mL (0-900) 05/15/20 14:08 Total Protein 6.9 g/dL (6.3-8.2) 05/19/20 06:28 Albumin 3.4 g/dL (3.9-5) L 05/19/20 06:28 Albumin/Globulin Ratio 1.0 % 05/19/20 06:28 Lipase 31 units/L (13-60) 05/15/20 14:08 Procalcitonin 0.25 ng/mL (<0.15) 05/15/20 14:08 Coronavirus (PCR) Positive (Negative) A 05/16/20 Unknown Microbiology: Microbiology 05/15/20 16:42 Peripheral/Venous Blood Culture - Preliminary NO GROWTH AFTER 72 HOURS 05/15/20 16:57 Peripheral/Venous Blood Culture - Preliminary NO GROWTH AFTER 72 HOURS Joshua/IV: Voiding Method Toilet IV Catheter Type [Left Upper INT / Saline Lock arm] Active Medications - Current Medications Current Medications: Generic Name Dose Route Start Last Admin Trade Name Freq PRN Reason Stop Dose Admin Acetaminophen 650 mg 05/15/20 18:11 Acetaminophen 325 Mg Tab PO Q4H PRN Pain MILD(1-3)/Fever >100.5/ARNETT Albuterol 2 puff 05/16/20 10:42 Albuterol 8.5 Gm Mdi Inhalation IH Q4HRT PRN Shortness Of Breath Amlodipine Besylate 10 mg 05/16/20 10:00 05/19/20 09:07 Amlodipine 10 Mg Tab PO 10 mg QDAY CALIN Administration Atorvastatin Calcium 80 mg 05/15/20 22:00 05/18/20 21:25 Atorvastatin 40 Mg Tab PO 80 mg QHS CALIN Administration Chlorthalidone 25 mg 05/16/20 10:00 05/19/20 09:07 Chlorthalidone 25 Mg Tab PO 25 mg QDAY CALIN Administration Dexamethasone 6 mg 05/18/20 10:00 05/19/20 09:05 Dexamethasone 4 Mg Tab PO 05/24/20 12:00 6 mg DAILY CALIN Administration Dextrose 50 ml 05/15/20 18:11 Dextrose 50% In Water (25gm) 50 Ml Syringe IV Q30MIN PRN Hypoglycemia Protocol Guaifenesin 10 ml 05/15/20 22:22 05/19/20 09:05 Guaifenesin Dm 200/20 Mg Oral Liqd 10 Ml PO 10 ml Q4H PRN Administration Cough Heparin Sodium (Porcine) 5,000 unit 05/16/20 15:30 05/19/20 09:06 Heparin 5,000 Unit/1 Ml Vial SUB-Q 5,000 unit Q12HR CALIN Administration Hydrophilic Ointment 1 applic 05/16/20 18:58 05/16/20 21:58 Lip Therapy Vaseline TP 1 applic DIRECT PRN Administration Dry Lips Ceftriaxone Sodium 2 gm in 100 mls @ 200 mls/hr 05/16/20 19:00 05/18/20 19:08 Rocephin/Ns 2 Gm/100 Ml IV 05/19/20 22:00 200 mls/hr Q24H CALIN Administration Protocol REMDESIVIR 100 mg/ Sodium 250 mls @ 500 mls/hr 05/18/20 21:00 05/18/20 21:24 Chloride IV 05/21/20 21:29 500 mls/hr Q24HR@2100 CALIN Administration Insulin Human Isoph/Insulin Regular 45 unit 05/17/20 16:54 05/19/20 08:45 Insulin Nph/Regular 70/30 Inj SUB-Q 45 unit BIDDIAB CALIN Administration Insulin Human Lispro 0 unit 05/15/20 22:00 05/19/20 07:30 Insulin Lispro 100 Unit/Ml SUB-Q 4 unit ACHS CALIN Administration Protocol Insulin Human Lispro 10 unit 05/19/20 07:30 05/19/20 07:30 Insulin Lispro 100 Unit/Ml SUB-Q 10 unit AC CALIN Administration Lisinopril 40 mg 05/16/20 10:00 05/19/20 09:06 Lisinopril 40 Mg Tab PO 40 mg DAILY CALIN Administration Magnesium Hydroxide 30 ml 05/15/20 18:11 Magnesium Hydroxide (Mom) Oral Liqd Udc PO Q4H PRN Constipation Morphine Sulfate 2 mg 05/15/20 18:11 Morphine 2 Mg/1 Ml Inj IV Q4H PRN Pain, Moderate (4-6) Ondansetron HCl 4 mg 05/15/20 18:11 Ondansetron 4 Mg/2 Ml Inj IV Q8H PRN Nausea And Vomiting Sodium Chloride 10 ml 05/15/20 22:00 05/19/20 09:07 Sodium Chloride 0.9% 10 Ml Flush Syringe IV 10 ml BID CALIN Administration Sodium Chloride 10 ml 05/15/20 18:11 Sodium Chloride 0.9% 10 Ml Flush Syringe IV PRN PRN LINE FLUSH Sodium Chloride 50 ml 05/17/20 10:30 05/18/20 21:24 Sodium Chloride 0.9% 50 Ml Ivpb IV 05/21/20 21:01 50 ml Q24HR@2100 CALIN Administration Nutrition/Malnutrition Assess - Dietary Evaluation Nutrition/Malnutrition Findings: Nutrition Notes Start: 05/16/20 12: 00 Freq: Status: Active Protocol: Document 05/16/20 12:00 EN (Rec: 05/16/20 12:07 EN [id number]) Co-Sign 05/16/20 12:00 MK Nutrition Notes Need for Assessment generated from: MD Order,terminal makeup operator,MST, Education Initial or Follow up Assessment Current Diagnosis COPD,Diabetes,Hypertension, Hyperlipidemia Other Pertinent Diagnosis Pneu, Suspected COVID-19, Hyperglycemia, hypoxia Current Diet Cardiac/Consistent CHO Labs/Tests Na 130 BUN 34 Cr 1.4 BG 361 Pertinent Medications Humalog Height 5 ft 7.5 in Weight 130.09 kg Usual Body Weight 133 kg [place] Body Weight (kg) 62.50 BMI 44.2 Intake Prior to Admission Excellent Weight Status Morbidly Obese Subjective/Other Information MD order for diet education and RN screen for MST/Skin risk. No Miguel A score in chart and RN reports pt does not have any wounds. Pt reports UBW of 290lbs 2 weeks ago. Pt reports eating well with a good appetite both DIET ASSISTANT and during admission. Pt consumed 100% of breakfast. Pt denies N /V/D and has no food preferences. Pt unavailable for diet education at this time d/t heading to the shower . Percent of energy/protein needs met: 100%/100% Burn Absent Trauma Absent GI Symptoms None Food Allergy No Current % PO Good (75-100%) Minimum of two criteria No physical signs of malnutrition #1 Nutrition Diagnosis No nutrition diagnosis at this time Is patient on ventilator? No Is Patient Ambulatory and/or Out of Bed No REE-([facility]-confined to bed) 2274.336 Kcal/Kg value to use for calculation 14 Approximate Energy Requirements Using 1821 kcal/Kg Calculation Used for Recommendations Kcal/kg Additional Notes Protein: 0.8-1g/kg AdBW 96kg ( 77-96g) Fluid: 1ml/kcal Nutrition Intervention Change Diet Order: Continue current diet Goal #1 Meet at least 75% of energy and protein needs via PO Anticipated Discharge Needs: Consistent CHO Follow-Up By: 05/21/20 Additional Comments F/u for diet education needs
--- NOTE | 2020-05-19 14:16 | Progress Note ---
Assessment and Plan Cultures: Blood culture no growth SARS CoV2 PCR positive Assessment: 65 years old female with history of hypertension, diabetes mellitus, arthritis, admitted on 05/15/2020 secondary to a week history of nonproductive cough, general malaise, nausea, vomiting and progressive shortness of breath: #Bilateral pneumonia: Secondary to COVID-19 infection. Chest x-ray with bilateral airspace disease. Inflammatory markers elevated. Borderline procalcitonin likely due to LYNDSAY. #Acute hypoxemic respiratory failure: on 3 L nasal cannula. #LYNDSAY: Likely due to COVID. Resolved Recommendations: -Antibiotics discontinued -Continue Decadron -Continue remdesivir, day 3 -Continue to wean oxygen, discharge planning with home oxygen evaluation Freya Tompkins MD, FACP [facility], [place], [facility] O: [phone] F: [phone] Subjective Date of service: 05/19/20 Interval history: Afebrile. On 3 L oxygen by nasal cannula Objective - Exam Narrative Exam: Physical Exam (reviewed in chart to minimize risk of transmission) Constitutional: deferred Head, Ears, Nose: deferred Eyes: deferred Neck: deferred Oral: deferred Cardiovascular: deferred Respiratory: deferred GI: deferred Musculoskeletal: deferred Skin: deferred Hem/Lymphatic: deferred Psych: deferred Neurological: deferred - Constitutional Vitals: Vital Signs Temp Pulse Resp BP Pulse Ox 97.4 F L 75 22 163/67 99 05/19/20 11:33 05/19/20 11:33 05/19/20 11:33 05/19/20 11:33 05/19/20 11:33 Temperature -Last 24 Hours Temperature 97.4 F Temperature 98.2 F Temperature 98.1 F Temperature 97.9 F - Labs CBC & Chem 7: 05/19/20 06:28 05/19/20 06:28 Labs: Abnormal lab results 05/18/20 05/19/20 05/19/20 Range/Units 22:39 06:28 06:28 Hgb 9.2 L (10.1-14.3) gm/dl Hct 28.8 L (30.3-42.9) % MCV 77 L (79-97) fl MCH 24 L (28-32) pg RDW 18.7 H (13.2-15.2) % Sodium 133 L (137-145) mmol/L BUN 53 H (7-17) mg/dL Glucose 265 H (65-100) mg/dL POC Glucose 295 H (70-105) mg/dL Albumin 3.4 L (3.9-5) g/dL 05/19/20 05/19/20 Range/Units 08:13 11:31 Hgb (10.1-14.3) gm/dl Hct (30.3-42.9) % MCV (79-97) fl MCH (28-32) pg RDW (13.2-15.2) % Sodium (137-145) mmol/L BUN (7-17) mg/dL Glucose (65-100) mg/dL POC Glucose 217 H 217 H (70-105) mg/dL Albumin (3.9-5) g/dL
[2020-05-19] MEDS: SODIUM CHLORIDE 0.9% 50 ML IVPB IV SCH (22:41)
[2020-05-19] MEDS: REMDESIVIR 100 MG in SODIUM CHLORIDE 0.9% 250ML 250 ML IV SCH (22:41)
[2020-05-20 07:04] LABS: Alanine Aminotransferase 17 units/L (7-56); Albumin 3.3 g/dL (3.9-5); BUN/Creatinine Ratio 48; Blood Urea Nitrogen 53 mg/dL (7-17); Calcium 8.8 mg/dL (8.4-10.2); Hemolysis Index 0
[2020-05-20 07:08] VITALS: BP 151/72
[2020-05-20] MEDS: INSULIN LISPRO 100 UNIT/ML SUB-Q SCH ×4 (07:48→11:30)
--- NOTE | 2020-05-20 08:24 | Discharge Summary ---
Providers - Providers Date of Admission: 05/15/20 16:47 Attending physician: DEE BAXTER MD 05/15/20 18:11 Consult to Dietitian/Nutrition [CONS] Routine Physician Instructions: Reason For Exam: Reason for Consult: Diet education Consult to Physician [CONS] Routine Comment: Consulting Provider: HERNANDEZ PALMER Physician Instructions: Reason For Exam: Pneumonia R/O Covid-19 Primary care physician: CHISEL WORKER Hospitalization Condition: Poor Hospital course: 65-year-old female who presents with nausea vomiting and shortness of breath. Patient has been confirmed with Covid infection. Plan: Sepsis secondary to Covid pneumonia Bilateral pulmonary infiltrates seen on chest x-ray, reviewed Infectious disease consulted Dexamethasone IV, remdesivir Patient currently on azithromycin and ceftriaxone Blood cultures negative today Hypertension Chlorthalidone, amlodipine, Diabetes mellitus type 2, with hyperglycemia, insulin-dependent A1c 8.6 Patient states that she takes 70/30 16 units twice daily, however patient states that she is running in the 200s to 300s at home. Will need to be adjusted at the time of discharge if she continues dexamethasone Currently 70/30 with supplemental Humalog AC and sliding scale Intermittent asthma Albuterol MDI breathing treatment Dexamethasone Pseudohyponatremia Secondary to hyperglycemia Continue to monitor Microcytic anemia Stool studies pending Morbid obesity Lifestyle change Disposition: DC-01 TO HOME OR SELFCARE Time spent for discharge: 35 MINS Exam - Constitutional Vitals: Temp Pulse Resp BP Pulse Ox 98.4 F 73 18 151/72 98 05/20/20 06:24 05/20/20 06:24 05/20/20 06:24 05/20/20 06:24 05/20/20 06:24 Plan Activity: advance as tolerated, fall precautions Diet: diabetic Special Instructions: record daily weights, record daily BP diary, record blood sugar diary, home oxygen via (nasal cannula @ 2 liters per minute) Follow up with: PRIMARY MD ARYA [Primary Care Provider] - 3-5 Days MILLICENT GOODMAN MD [Staff Physician] - 7 Days MOISES GOLDEN MD [Staff Physician] - 7 Days Prescriptions: dexAMETHasone [Dexamethasone] 6 mg PO DAILY #5 tablet guaiFENesin DM [Guaifenesin Dm Syrup] 10 ml PO Q4H PRN #10 oral.liqd PRN Reason: Cough
[2020-05-20] MEDS: CHLORTHALIDONE 25 MG TAB PO SCH (09:56)
[2020-05-20] MEDS: DEXAMETHASONE 4 MG TAB PO SCH (09:57)
[2020-05-20] MEDS: LISINOPRIL 40 MG TAB PO SCH (09:57)
[2020-05-20] MEDS: INSULIN NPH/REGULAR 70/30 INJ SUB-Q SCH (09:58)
[2020-05-20] MEDS: amLODIPine 10 MG TAB PO SCH (09:58)
[2020-05-20] MEDS: HEPARIN 5,000 UNIT/1 ML VIAL SUB-Q SCH (09:59)
== END 2020-05-20 12:45 | disposition home or self-care (01) | DRG 871 ==
LOC: ED 12:32 → 3A 16:47
PROVIDERS: ADMIT Internal Medicine Geriatric Medicine; ATTEND Internal Medicine
PROC: XW033E5 Introduction of Remdesivir Anti-infective into Peripheral Vein, Percutaneous Approach, New Technology Group 5 (ICD-10-PCS; principal; 2020-05-17)
DX: A41.89 Other specified sepsis (principal); U07.1 COVID-19; J96.01 Acute respiratory failure with hypoxia; J12.82 Pneumonia due to coronavirus disease 2019; J44.0 Chronic obstructive pulmonary disease with (acute) lower respiratory infection; N17.9 Acute kidney failure, unspecified; Z68.42 Body mass index [BMI] 45.0-49.9, adult; I10 Essential (primary) hypertension; Z79.4 Long term (current) use of insulin; M19.90 Unspecified osteoarthritis, unspecified site; Z79.899 Other long term (current) drug therapy; E78.5 Hyperlipidemia, unspecified; E11.65 Type 2 diabetes mellitus with hyperglycemia; E66.9 Obesity, unspecified; D50.9 Iron deficiency anemia, unspecified
CPT/HCPCS: 36415; 71045; 71046; 80048; 80053; 82140; 82728; 82962; 83036; 83615; 83690; 83880; 84145; 84484; 85025; 85027; 85379; 85610; 86140; 87040; 93005; 94640; 94760; 96365; 96375; 96376; G0378; A9270-GY; J0456; J0696; J1100; J1644; J1815; J1940; J7030; J8540; U0003